=== PATIENT | female | born 1990 | race Caucasian/White ===

== ENCOUNTER 2016-04-18 10:37 | Emergency (ER) | payer OTHER ==
[~2016-04-18 10:37] MED LIST: ACET-704 PO; DICY10CA3 PO; DOCU-27 PO; HYDR-2678 PO; HYDR-2762 PO; Ibuprofen PO; LORA0.5T96 PO; OMEP20TA PO; OXYC-323 PO; PNV1TABL25 PO; PROM25TA10 PO; SULF1TAB24 PO; SULF1TAB3 PO; VENTOLIN HFA18 GM IH
[2016-04-18] MEDS ORDERED: ONDANSETRON PF 4 MG/2 ML VIAL. IV ONE (11:00)
[2016-04-18] MEDS ORDERED: IV NORMAL SALINE 1000ML BAG 1,000 ML IV ONE (11:00)
[2016-04-18] MEDS ORDERED: CEFTRIAXONE 1GM IVPB FOR OMNI 50 ML IV ONE (11:00)
[2016-04-18 11:29] LABS: BASO % 1 % (0-3); EOS % 2 % (0-3); HEMATOCRIT 39.3 % (36.0-47.0); HEMOGLOBIN 13.3 g/dL (12.0-15.5); LYMPH # 1.6 x10^3/uL (1.0-4.8); LYMPH % 31 % (24-48); MEAN CORPUSCULAR HEMOGLOBIN 28 pg (25-35); MEAN CORPUSCULAR HGB CONC 34 g/dL (31-37); MEAN CORPUSCULAR VOLUME 83 fL (79-100); MONO % 9 % (0-9); NEUT % 58 % (31-73); PLATELET COUNT 220 x10^3/uL (140-400); RED BLOOD COUNT 4.72 x10^6/uL (3.50-5.40); RED CELL DISTRIBUTION WIDTH 13.5 % (11.5-14.5); WHITE BLOOD COUNT 5.2 x10^3/uL (4.0-11.0)
[2016-04-18 11:41] LABS: CREATININE 0.7 mg/dL (0.6-1.0); GFR 100.4; POTASSIUM 3.8 mmol/L (3.5-5.1)
[2016-04-18 11:48] LABS: ALBUMIN 4.1 g/dL (3.4-5.0); ALBUMIN/GLOBULIN RATIO 1.2 (1.0-1.7); TOTAL BILIRUBIN 0.5 mg/dL (0.2-1.0); TOTAL PROTEIN 7.6 g/dL (6.4-8.2)
[2016-04-18 12:22] LABS: NEG OBC UR NEG; POS OBC UR POS
[2016-04-18 12:25] LABS: BILIRUBIN,URINE NEGATIVE (NEG); GLUCOSE,URINE NEGATIVE (NEG); NITRITE,URINE NEGATIVE (NEG); PROTEIN,URINE NEGATIVE (NEG-TRACE); UROBILINOGEN,URINE 0.2 mg/dL (0.2 mg/dL)
[2016-04-18 12:42] LABS: BACTERIA,URINE MODERATE /HPF (0-FEW); SQUAMOUS EPITHELIAL CELL,UR MANY /LPF
[2016-04-18 13:17] VITALS: BP 130/72
[2016-04-18] MEDS ORDERED: SULF1TAB24 PO (13:20)
[2016-04-18] MEDS ORDERED: DICY20TA3 PO (13:20)
[2016-04-18] MEDS ORDERED: ONDA4TAB10 SL (13:20)
--- NOTE | 2016-04-18 13:20 | PHYS DOC ---
Past Medical History Past Medical History: Asthma Past Surgical History: Cholecystectomy Alcohol Use: None Drug Use: None Adult General Chief Complaint Chief Complaint: BACK PAIN - NO INJURY HPI HPI Patient is a 25 year old female with history of asthma who presents the multiple complaints. Patient states she's had moderate right flank pain, nausea vomiting and diarrhea for the last 24 days. Patient is also complaining of lower abdominal complaining of chest pressure when she lays down. Patient denies any hematemesis or melena. She believes her symptoms are streaming from taking Macrobid which she was put on a couple days ago for UTI. She feels her UTI symptoms of good 10 worse. She believes her infection is contracted kidneys. She is requested to also have an EKG and troponin to make sure her heart is okay. Off not patient was in the ED on April 07 for chest pain and was worked up and had negative results, she was also in the ED on April 06 for back pain and was worked up as well. She was also in the ED on February 2016. She states the medication she is no/ Macrobid made her symptoms worse and would like to be put on something else. Review of Systems Review of Systems Constitutional: Denies fever or chills [] Eyes: Denies change in visual acuity, redness, or eye pain [] HENT: Denies nasal congestion or sore throat [] Respiratory: Denies cough or shortness of breath [] Cardiovascular: chest pressure GI: abdominal pain, nausea, vomiting, and diarrhea [] : right flank pain Musculoskeletal: Denies back pain or joint pain [] Integument: Denies rash or skin lesions [] Neurologic: Denies headache, focal weakness or sensory changes [] Endocrine: Denies polyuria or polydipsia [] pysch:anxiety Current Medications Current Medications Current Medications Medications (Trade) Dose Ordered Sig/Andressa Start Time Stop Time Status Last Admin Dose Admin Ceftriaxone Sodium (Rocephin 1gm Ivpb For Omni) 50 ml @ 100 mls/hr 1X ONCE 04/18/16 11:00 04/18/16 11:29 DC 04/18/16 11:24 100 MLS/HR Ondansetron HCl 4 mg 4 mg 1X ONCE 04/18/16 11:00 04/18/16 11:01 DC 04/18/16 11:24 4 MG Sodium Chloride (Iv Sodium Chloride 0.9% 1000ml Bag) 1,000 ml @ 1,000 mls/hr 1X ONCE 04/18/16 11:00 04/18/16 11:59 DC 04/18/16 11:24 1,000 MLS/HR Trimethoprim/ Sulfamethoxazole (Bactrim Ds) 1 tab 1X ONCE 04/18/16 13:45 04/18/16 13:46 DC 04/18/16 13:17 1 TAB Allergies Allergies Allergies Coded Allergies Type Severity Reaction Last Updated Verified codeine Allergy Mild abdominal pain 04/18/16 Yes ibuprofen Adverse Reaction Mild NAUSEA 04/06/16 Yes Physical Exam Physical Exam Constitutional: Well developed, well nourished, no acute distress, non-toxic appearance. [] HENT: Normocephalic, atraumatic, bilateral external ears normal, oropharynx moist, no oral exudates, nose normal. [] Eyes: PERRLA, EOMI, conjunctiva normal, no discharge. [] Neck: Normal range of motion, no tenderness, supple, no stridor. [] Cardiovascular:Heart rate regular rhythm, no murmur [] Lungs & Thorax: Bilateral breath sounds clear to auscultation [] Abdomen: Bowel sounds normal, soft, no tenderness, no masses, no pulsatile masses. [] Skin: Warm, dry, no erythema, no rash. [] Back: No tenderness, no CVA tenderness. [] Extremities: No tenderness, no cyanosis, no clubbing, ROM intact, no edema. [] Neurologic: Alert and oriented X 3, normal motor function, normal sensory function, no focal deficits noted. [] Psychologic: Patient appears anxious Current Patient Data Vital Signs Vital Signs Date Time Temp Pulse Resp B/P Pulse Ox O2 Delivery O2 Flow Rate FiO2 04/18/16 13:17 85 17 130/72 100 Room Air 04/18/16 10:51 98.3 98.3 Lab Values Laboratory Tests Test 04/18/16 11:15 04/18/16 11:42 White Blood Count 5.2x10^3/uL (4.0-11.0) Red Blood Count 4.72x10^6/uL (3.50-5.40) Hemoglobin 13.3g/dL (12.0-15.5) Hematocrit 39.3% (36.0-47.0) Mean Corpuscular Volume 83fL (79-100) Mean Corpuscular Hemoglobin 28pg (25-35) Mean Corpuscular Hemoglobin Concent 34g/dL (31-37) Red Cell Distribution Width 13.5% (11.5-14.5) Platelet Count 220x10^3/uL (140-400) Neutrophils (%) (Auto) 58% (31-73) Lymphocytes (%) (Auto) 31% (24-48) Monocytes (%) (Auto) 9% (0-9) Eosinophils (%) (Auto) 2% (0-3) Basophils (%) (Auto) 1% (0-3) Neutrophils # (Auto) 3.0x10^3uL (1.8-7.7) Lymphocytes # (Auto) 1.6x10^3/uL (1.0-4.8) Monocytes # (Auto) 0.5x10^3/uL (0.0-1.1) Eosinophils # (Auto) 0.1x10^3/uL (0.0-0.7) Basophils # (Auto) 0.0x10^3/uL (0.0-0.2) Sodium Level 141mmol/L (136-145) Potassium Level 3.8mmol/L (3.5-5.1) Chloride Level 105mmol/L (98-107) Carbon Dioxide Level 23mmol/L (21-32) Anion Gap 13 (6-14) Blood Urea Nitrogen 6mg/dL (7-20) L Creatinine 0.7mg/dL (0.6-1.0) Estimated GFR (Cockcroft-Gault) 100.4 BUN/Creatinine Ratio 9 (6-20) Glucose Level 101mg/dL (70-99) H Calcium Level 9.0mg/dL (8.5-10.1) Total Bilirubin 0.5mg/dL (0.2-1.0) Aspartate Amino Transferase (AST) 14U/L (15-37) L Alanine Aminotransferase (ALT) 28U/L (14-59) Alkaline Phosphatase 78U/L (46-116) Troponin I Quantitative < 0.017ng/mL (0.000-0.055) Total Protein 7.6g/dL (6.4-8.2) Albumin 4.1g/dL (3.4-5.0) Albumin/Globulin Ratio 1.2 (1.0-1.7) Lipase 93U/L (73-393) Urine Collection Type Unknown Urine Color Yellow Urine Clarity Clear Urine pH 6.0 Urine Specific [place] 1.010 Urine Protein Negativemg/dL (NEG-TRACE) Urine Glucose (UA) Negativemg/dL (NEG) Urine Ketones (Stick) 15mg/dL (NEG) Urine Blood Negative (NEG) Urine Nitrite Negative (NEG) Urine Bilirubin Negative (NEG) Urine Urobilinogen Dipstick 0.2mg/dL (0.2 mg/dL) Urine Leukocyte Esterase Moderate (NEG) Urine RBC 3-5/HPF (0-2) Urine WBC 5-10/HPF (0-4) Urine Squamous Epithelial Cells Many/LPF Urine Bacteria Moderate/HPF (0-FEW) Urine Mucus Mod/LPF Urine Test Negative (NEG) Laboratory Tests 04/18/16 11:15 Laboratory Tests 04/18/16 11:15 EKG EKG [] Radiology/Procedures Radiology/Procedures [] Course & Med Decision Making Course & Med Decision Making Pertinent Labs and Imaging studies reviewed. (See chart for details) Patient is in the ED with multiple complaints including right flank pain, nausea vomiting and diarrhea for 24 hours, no abdominal pain, chest pressure, patient was seen in the ED of March 08, 2016 and was worked up for chest pain with negative results, she was also seen in the ED on April 06, 2016 for back pain and was also worked up, she was also seen in the ED of February 2016 for upper respiratory infection. On today's exam this patient appears anxious. She states she has history of anxiety and has an appointment with her counselor tomorrow as well as her PCP next week. She states she used to be on Xanax when necessary for anxiety but she no longer takes it. 11:[address] Martinez sinus rate them, heart rate 76, leftward axis, no STEMI. CBC CMP, troponin and lipase with no acute findings. Negative urine hCG, urine positive for moderate amount of leukocytes, many squamous cell epithelium, and moderate bacteria, I suspect this urine is contaminated. Unfortunately patient is very insistent, she states she would like to be switched from her current antibiotic tried different one. I gave Rocephin in the ED, given a prescription for Bactrim for 3 days. First does was also given in the ED. She was discharged with Zofran as well as a dicyclomine I talked to patient at length. Her anxiety is driving most of her symptoms. She has an appointment with her counselor tomorrow which she promised me she will. She also has an appointment with her PCP next week. I hope they put patient on antianxiety which I highly recommended. Dragon Disclaimer Dragon Disclaimer This electronic medical record was generated, in whole or in part, using a voice recognition dictation system. Departure Departure Impression: Primary Impression: Chest pain Additional Impressions: UTI (urinary tract infection) Anxiety Right flank pain Nausea and vomiting Diarrhea Disposition: HOME, SELF-CARE Condition: STABLE Referrals: FREYA JOHNSTON MD (PCP) Follow-up with your doctor as soon as possible Patient Instructions: Abdominal Pain, Anxiety and Panic Attacks, Chest Pain ( Nonspecific), Diarrhea, Nausea and Vomiting, Urinary Tract Infection Additional Instructions: You were seen for multiple complaints including nausea vomiting diarrhea flank pain low abdominal pain chest pressure. Your cardiac workup is negative. Your other lab work is okay. We did switched you from your current antibiotics to Bactrim, ensure you complete it. As we discussed her highly recommend you see your counselor tomorrow. I also recommended you see your own primary care doctor as soon as possible. Scripts Dicyclomine Hcl 20 Mg Tablet1 Tab PO TID #30 TAB Ref 1 Prov:JOHN BANSAL LOGISTICS SUPERVISOR 04/18/16 Ondansetron (Zofran Odt)4 Mg Tab.rapdis1 Tab SL Q8HRS #15 TAB Prov:JOHN BANSAL LOGISTICS SUPERVISOR 04/18/16 Sulfamethoxazole/Trimethoprim (Bactrim Ds Tablet)1 Each Tablet1 Tab PO BID #5 TAB Prov:JOHN BANSAL LOGISTICS SUPERVISOR 04/18/16 Problem Qualifiers Primary Impression: Chest pain Chest pain type: unspecified Qualified Code: R07.9 - Chest pain, unspecified Additional Impressions: UTI (urinary tract infection) Urinary tract infection type: acute cystitis Hematuria presence: without hematuria Qualified Code: N30.00 - Acute cystitis without hematuria Nausea and vomiting Vomiting type: unspecified Vomiting Intractability: non-intractable Qualified Code: R11.2 - Nausea with vomiting, unspecified Diarrhea Diarrhea type: unspecified type Qualified Code: R19.7 - Diarrhea, unspecified MUTUNGA,JOHN LOGISTICS SUPERVISOR Apr 18, 2016 13:20
[2016-04-18] MEDS ORDERED: SMZ/TMP 800/160MG TABLET. PO ONE (13:45)
--- NOTE | 2016-04-19 13:33 | EKG ---
[facility] [address] [place] [address] Test Date: 2016-04-18 Test Time: 11:27:30 Pat Name: TYSHAWN LOPEZ Department: Room: Gender: F [employer] Teacher: : 1990 Requested By: JOHN BANSAL Order Number: [id number] Reading MD: Stella Warner Measurements Intervals [place] Rate: 76 P: 30 DE: 124 QRS: 13 QRSD: 88 T: 20 QT: 372 QTc: 423 Interpretive Statements SINUS RHYTHM NORMAL ECG RI6.01 Compared to ECG 03/30/2016 15:27:21 Sinus tachycardia no longer present Electronically Signed On 04-23-2016 21:40:46 RISK CONSULTING TREASURY DIRECTOR by Stella Warner
== END 2016-04-18 13:40 | disposition home or self-care (01) ==
LOC: ER 10:37
DX: N39.0 Urinary tract infection, site not specified (principal); R07.89 Other chest pain; R11.2 Nausea with vomiting, unspecified; R19.7 Diarrhea, unspecified; F41.9 Anxiety disorder, unspecified; J45.909 Unspecified asthma, uncomplicated; Z90.49 Acquired absence of other specified parts of digestive tract; Z88.6 Allergy status to analgesic agent; Z88.8 Allergy status to other drugs, medicaments and biological substances
CPT/HCPCS: 36415; 80053; 81001; 81025; 83690; 84484; 85027; 87086; 93005; 96365; 96375; 99285; J0690; J2405; J7030

== ENCOUNTER 2016-05-02 15:29 | Emergency (ER) | payer OTHER ==
[~2016-05-02 15:29] MED LIST changes: +DICY20TA3 PO; +ONDA4TAB10 SL
--- NOTE | 2016-05-02 18:35 | PHYS DOC ---
Past Medical History Past Medical History: Anxiety, Asthma Past Surgical History: Cholecystectomy Alcohol Use: None Drug Use: None Adult General Chief Complaint Chief Complaint: NAUSEA/VOMITING/DIARRHA HPI HPI Patient is a 25 year old female who presents with multiple complaints. Patient reports for the past couple weeks she has had body aches in her chest, back, legs, nausea/vomiting, feeling flushed, cough. Last night she took some anxiety medicine feels like her symptoms got worse. She has also tried medicine for acid reflux, acetaminophen, Zofran, Pepto-Bismol with insufficient relief. No clear aggravating factors other than anxiety medicine. Patient has an appointment with PCP on 05/05 but felt like she could not make it until then without being seen. Review of Systems Review of Systems Constitutional: Chills, flushed Eyes: Denies change in visual acuity or eye pain HENT: Denies nasal congestion or sore throat Respiratory: Cough. Denies shortness of breath Cardiovascular: Denies chest pain GI: Nausea/vomiting. Denies abdominal pain, bloody stools or diarrhea : Denies dysuria or hematuria Musculoskeletal: Body aches Integument: Denies rash or skin lesions Neurologic: Denies headache, focal weakness or sensory changes Current Medications Current Medications Current Medications Medications (Trade) Dose Ordered Sig/Andressa Start Time Stop Time Status Last Admin Dose Admin Naproxen 500 mg 500 mg 1X ONCE 05/02/16 18:45 05/02/16 18:46 DC 05/02/16 19:41 500 MG Promethazine HCl/ Sodium Chloride (Phenergan/Iv Sodium Chloride 0.9% 50ml) 50.5 ml @ 151.5 mls/ hr 1X ONCE 05/02/16 18:45 05/02/16 19:04 DC 05/02/16 19:42 151.5 MLS/HR Sodium Chloride (Iv Sodium Chloride 0.9% 1000ml Bag) 1,000 ml @ 1,000 mls/hr Q1H 05/02/16 18:36 05/02/16 19:35 DC 05/02/16 19:42 1,000 MLS/HR Allergies Allergies Allergies Coded Allergies Type Severity Reaction Last Updated Verified codeine Allergy Mild abdominal pain 04/18/16 Yes ibuprofen Adverse Reaction Mild NAUSEA 04/06/16 Yes Physical Exam Physical Exam Constitutional: Well developed, well nourished, no acute distress, non-toxic appearance HENT: Normocephalic, atraumatic, bilateral external ears normal Eyes: EOMI, conjunctiva normal, no discharge Neck: Normal range of motion, no stridor Cardiovascular: Heart rate normal, regular rhythm, no murmur Lungs & Thorax: Bilateral breath sounds clear to auscultation Abdomen: Bowel sounds normal, soft, non-distended, no TTP Skin: Warm, dry, no erythema, no rash Extremities: Seemingly random TTP around body - ie on chest, back, legs Neurologic: Alert and oriented X 3, no gross deficits noted Psychologic: Anxious Current Patient Data Vital Signs Vital Signs Date Time Temp Pulse Resp B/P Pulse Ox O2 Delivery O2 Flow Rate FiO2 05/02/16 20:50 78 122/68 99 Room Air 05/02/16 17:40 98.5 18 98.5 Lab Values Laboratory Tests Test 05/02/16 19:30 05/02/16 19:35 White Blood Count 7.0x10^3/uL (4.0-11.0) Red Blood Count 5.14x10^6/uL (3.50-5.40) Hemoglobin 14.5g/dL (12.0-15.5) Hematocrit 43.6% (36.0-47.0) Mean Corpuscular Volume 85fL (79-100) Mean Corpuscular Hemoglobin 28pg (25-35) Mean Corpuscular Hemoglobin Concent 33g/dL (31-37) Red Cell Distribution Width 13.9% (11.5-14.5) Platelet Count 262x10^3/uL (140-400) Neutrophils (%) (Auto) 48% (31-73) Lymphocytes (%) (Auto) 41% (24-48) Monocytes (%) (Auto) 9% (0-9) Eosinophils (%) (Auto) 1% (0-3) Basophils (%) (Auto) 1% (0-3) Neutrophils # (Auto) 3.3x10^3uL (1.8-7.7) Lymphocytes # (Auto) 2.9x10^3/uL (1.0-4.8) Monocytes # (Auto) 0.6x10^3/uL (0.0-1.1) Eosinophils # (Auto) 0.1x10^3/uL (0.0-0.7) Basophils # (Auto) 0.1x10^3/uL (0.0-0.2) Sodium Level 138mmol/L (136-145) Potassium Level 3.6mmol/L (3.5-5.1) Chloride Level 100mmol/L (98-107) Carbon Dioxide Level 24mmol/L (21-32) Anion Gap 14 (6-14) Blood Urea Nitrogen 6mg/dL (7-20) L Creatinine 0.7mg/dL (0.6-1.0) Estimated GFR (Cockcroft-Gault) 100.4 Glucose Level 83mg/dL (70-99) Calcium Level 9.7mg/dL (8.5-10.1) Magnesium Level 2.2mg/dL (1.8-2.4) Total Bilirubin 0.5mg/dL (0.2-1.0) Direct Bilirubin < 0.1mg/dL (0.0-0.2) Aspartate Amino Transferase (AST) 15U/L (15-37) Alanine Aminotransferase (ALT) 25U/L (14-59) Alkaline Phosphatase 75U/L (46-116) Total Protein 8.3g/dL (6.4-8.2) H Albumin 4.5g/dL (3.4-5.0) Urine Collection Type Unknown Urine Color Yellow Urine Clarity Clear Urine pH 6.0 Urine Specific [place] <=1.005 Urine Protein Negativemg/dL (NEG-TRACE) Urine Glucose (UA) Negativemg/dL (NEG) Urine Ketones (Stick) Tracemg/dL (NEG) Urine Blood Negative (NEG) Urine Nitrite Negative (NEG) Urine Bilirubin Negative (NEG) Urine Urobilinogen Dipstick 0.2mg/dL (0.2 mg/dL) Urine Leukocyte Esterase Small (NEG) Urine RBC 0/HPF (0-2) Urine WBC 5-10/HPF (0-4) Urine Squamous Epithelial Cells Mod/LPF Urine Bacteria Moderate/HPF (0-FEW) Urine Test Negative (NEG) Laboratory Tests 05/02/16 19:30 Laboratory Tests 05/02/16 19:30 EKG EKG EKG (my read): sinus rhythm, rate 79, normal axis, intervals wnl, no acute ischemic changes Radiology/Procedures Radiology/Procedures CXR (my read): No acute abnormality Course & Med Decision Making Course & Med Decision Making Pertinent Labs and Imaging studies reviewed. (See chart for details) Patient is 25-year-old female who presents with multiple complaints. Appears to have some component of anxiety. Perhaps has fibromyalgia. Will check EKG, chest x-ray, labs to evaluate for more serious pathology. IV fluids, naproxen, Phenergan ordered for relief of symptoms. Chest x-ray results as above. EKG okay per my read. Labs largely unremarkable. Discussed results with patient. Discussed importance of following up with PCP and also a in file operator, with whom she is awaiting an appointment. We'll discharge home with prescription for naproxen and Phenergan, instructions for follow-up, return precautions. Dragon Disclaimer Dragon Disclaimer This electronic medical record was generated, in whole or in part, using a voice recognition dictation system. Departure Departure Impression: Primary Impression: Myalgia Additional Impressions: Atypical chest pain Nausea Disposition: HOME, SELF-CARE Condition: STABLE Referrals: FREYA JOHNSTON MD (PCP) Patient Instructions: Chest Pain (Nonspecific), Myalgia, Adult, Nausea and Vomiting Additional Instructions: Thank you for allowing us to provide care today in the Emergency Department. Take the provided medication as directed. Use caution when taking the nausea medication as it can make you drowsy. Schedule a follow up appointment with your primary care doctor. Return promptly to the Emergency Department if you develop any new or concerning symptoms. Scripts Naproxen 375 Mg [id number] Mg PO BID #20 Prov:JUDY ARRIOLA MD 05/02/16 Promethazine Hcl 25 Mg [id number] Mg PO Q6H PRN NAUSEA/VOMITING #15 TAB Prov:JUDY ARRIOLA MD 05/02/16 Problem Qualifiers JUDY ARRIOLA MD May 02, 2016 18:35
[2016-05-02] MEDS ORDERED: IV NORMAL SALINE 1000ML BAG 1,000 ML IV SCH (18:36)
[2016-05-02] MEDS ORDERED: NAPROXEN 500 MG TABLET PO ONE (18:45)
[2016-05-02] MEDS ORDERED: PROMETHAZINE 12.5 MG in IV NORMAL SALINE 50ML 50 ML IV ONE (18:45)
[2016-05-02 19:48] LABS: BASO # 0.1 x10^3/uL (0.0-0.2); BASO % 1 % (0-3); EOS % 1 % (0-3); HEMATOCRIT 43.6 % (36.0-47.0); HEMOGLOBIN 14.5 g/dL (12.0-15.5); LYMPH # 2.9 x10^3/uL (1.0-4.8); LYMPH % 41 % (24-48); MEAN CORPUSCULAR HEMOGLOBIN 28 pg (25-35); MEAN CORPUSCULAR HGB CONC 33 g/dL (31-37); MEAN CORPUSCULAR VOLUME 85 fL (79-100); MONO % 9 % (0-9); NEUT % 48 % (31-73); PLATELET COUNT 262 x10^3/uL (140-400); RED BLOOD COUNT 5.14 x10^6/uL (3.50-5.40); RED CELL DISTRIBUTION WIDTH 13.9 % (11.5-14.5)
[2016-05-02 19:50] LABS: NEG OBC UR NEG; POS OBC UR POS
[2016-05-02 19:53] LABS: BILIRUBIN,URINE NEGATIVE (NEG); GLUCOSE,URINE NEGATIVE (NEG); NITRITE,URINE NEGATIVE (NEG); PROTEIN,URINE NEGATIVE (NEG-TRACE); UROBILINOGEN,URINE 0.2 mg/dL (0.2 mg/dL)
[2016-05-02 20:07] LABS: ANION GAP 14 (6-14); BLOOD UREA NITROGEN 6 mg/dL (7-20); CALCIUM 9.7 mg/dL (8.5-10.1); CARBON DIOXIDE 24 mmol/L (21-32); CHLORIDE 100 mmol/L (98-107); CREATININE 0.7 mg/dL (0.6-1.0); GFR 100.4; GLUCOSE 83 mg/dL (70-99); POTASSIUM 3.6 mmol/L (3.5-5.1); SODIUM 138 mmol/L (136-145)
[2016-05-02 20:13] LABS: ALBUMIN 4.5 g/dL (3.4-5.0); ALK PHOS 75 U/L (46-116); ALT (SGPT) 25 U/L (14-59); AST (SGOT) 15 U/L (15-37); DIRECT BILIRUBIN < 0.1 mg/dL (0.0-0.2); MAGNESIUM 2.2 mg/dL (1.8-2.4); TOTAL BILIRUBIN 0.5 mg/dL (0.2-1.0); TOTAL PROTEIN 8.3 g/dL (6.4-8.2)
[2016-05-02 20:15] LABS: BACTERIA,URINE MODERATE /HPF (0-FEW); RBC,URINE 0 /HPF (0-2); SQUAMOUS EPITHELIAL CELL,UR MOD /LPF
[2016-05-02] MEDS ORDERED: NAPR375T3 PO (20:44)
[2016-05-02] MEDS ORDERED: PROM25TA10 PO (20:44)
[2016-05-02 20:50] VITALS: BP 122/68
--- NOTE | 2016-05-03 06:56 | EKG ---
[facility] [address] [place] [address] Test Date: 2016-05-02 Test Time: 19:43:50 Pat Name: TYSHAWN LOPEZ Department: Room: Gender: F Manufacturing Team Leader: : 1990 Requested By: JUDY ARRIOLA Order Number: [id number] Reading MD: Stella Warner Measurements Intervals [place] Rate: 79 P: 0 VA: 134 QRS: 23 QRSD: 88 T: 12 QT: 360 QTc: 414 Interpretive Statements SINUS RHYTHM NORMAL EKG RI6.01 Compared to ECG 04/18/2016 11:27:30 No significant changes Electronically Signed On 05-05-2016 0:23:46 TECHNICAL PROGRAMS MANAGER by Stella Warner
--- NOTE | 2016-05-03 09:20 | RAD ---
Chest, 2 views, 05/02/2016: History: Chest lump Comparison is made to a study from 04/07/2016. The heart size and pulmonary vascularity are normal. The lungs are clear. There is no evidence of pleural fluid. IMPRESSION: No significant cardiopulmonary abnormality is detected.
== END 2016-05-02 21:01 | disposition home or self-care (01) ==
LOC: ER 15:29
DX: R07.89 Other chest pain (principal); M79.1 Myalgia; R11.2 Nausea with vomiting, unspecified; R05 Cough; F41.9 Anxiety disorder, unspecified; J45.909 Unspecified asthma, uncomplicated; Z90.49 Acquired absence of other specified parts of digestive tract; Z88.5 Allergy status to narcotic agent; Z88.8 Allergy status to other drugs, medicaments and biological substances
CPT/HCPCS: 36415; 71020; 80048; 80076; 81001; 81025; 83735; 85027; 87086; 93005; 96365; 99285; J2550; J7030

== ENCOUNTER 2016-09-03 22:00 | Emergency (ER) | payer OTHER ==
[~2016-09-03] VITALS: Ht 167.6 cm; Wt 93.6 kg
[~2016-09-03 22:00] MED LIST changes: +NAPR375T3 PO
--- NOTE | 2016-09-03 22:24 | PHYS DOC ---
Past Medical History Past Medical History: Anxiety, Asthma Past Surgical History: Cholecystectomy Alcohol Use: None Drug Use: None Adult General Chief Complaint Chief Complaint: ABDOMINAL PAIN HPI HPI This is a pleasant 26-year-old female with history of asthma and prior cholelithiasis requiring cholecystectomy presents with one-week history of diffuse crampy abdominal pain as got progressively worse and localized to the right flank. She was seen by her primary care doctor described the symptoms of nausea without vomiting or diarrhea with progressive crampy abdominal pain with meals she was prescribed Tylenol and diagnosis of IBS. She does have a GI doctor Dr. Mesfin Ying who is supposed to see her and schedule an EGD later in the next several weeks. She comes in today with increasing abdominal pain in the right flank describing mild dysuria or increased frequency with localized pressure. She's got subjective fevers and chills without diarrhea. patient admits to no travel of the country, no recent antibiotics, no sick contacts, no recent raw food consumption, handling a poultry or reptiles, or exposure to infectious diarrheas. Review of Systems Review of Systems Constitutional: Complains of subjective fevers and chills. Eyes: Denies change in visual acuity, redness, or eye pain [] HENT: Denies nasal congestion or sore throat [] Respiratory: Denies cough or shortness of breath [] Cardiovascular: No additional information not addressed in HPI [] GI: As a diffuse abdominal pain with nausea without vomiting no diarrhea. : Planes of dysuria without frequency or urgency. Musculoskeletal: Denies back pain or joint pain [] Integument: Denies rash or skin lesions [] Neurologic: Denies headache, focal weakness or sensory changes [] Endocrine: Denies polyuria or polydipsia [] Current Medications Current Medications Current Medications Medications (Trade) Dose Ordered Sig/Andressa Start Time Stop Time Status Last Admin Dose Admin Fentanyl Citrate (Fentanyl 2ml Vial) 50 mcg 1X ONCE 09/03/16 22:30 09/03/16 22:31 DC 09/03/16 22:38 50 MCG Ondansetron HCl (Zofran) 4 mg 1X ONCE 09/03/16 22:30 09/03/16 22:31 DC 09/03/16 22:38 4 MG Sodium Chloride (Normal Saline Flush) 10 ml QSHIFT PRN 09/03/16 22:30 Allergies Allergies Allergies Coded Allergies Type Severity Reaction Last Updated Verified codeine Allergy Mild abdominal pain 04/18/16 Yes ibuprofen Adverse Reaction Mild NAUSEA 04/06/16 Yes Physical Exam Physical Exam mild HTN noted no fever, no hypoxia, no tachypnea Constitutional: Well developed, well nourished, no acute distress, non-toxic appearance. [] HENT: Normocephalic, atraumatic, bilateral external ears normal, oropharynx moist, Cardiovascular:Heart rate regular rhythm, no murmur [] Lungs & Thorax: Bilateral breath sounds clear to auscultation [] Abdomen: Bowel sounds normal, soft, tenderness to palpation right flank without rash. Increased active bowel sounds no guarding rebound or organomegaly Skin: Warm, dry, no erythema, no rash. [] Back: No tenderness, no CVA tenderness. [] Extremities: No tenderness, no cyanosis, no clubbing, ROM intact, no edema. [] Neurologic: Alert and oriented X 3, normal motor function, normal sensory function, no focal deficits noted. [] Psychologic: Affect normal, judgement normal, mood normal. [] Current Patient Data Vital Signs Vital Signs Date Time Temp Pulse Resp B/P (MAP) Pulse Ox O2 Delivery O2 Flow Rate FiO2 09/03/16 22:38 18 100 Room Air 09/03/16 22:24 99.3 84 146/88 (107) 99.3 Lab Values Laboratory Tests Test 09/03/16 21:27 09/03/16 22:09 09/03/16 22:20 POC Urine HCG, Qualitative Hcg negative (Negative) Urine Collection Type Unknown Urine Color Yellow Urine Clarity Clear Urine pH 6.5 Urine Specific [place] <=1.005 Urine Protein Negative mg/dL (NEG-TRACE) Urine Glucose (UA) Negative mg/dL (NEG) Urine Ketones (Stick) Negative mg/dL (NEG) Urine Blood Negative (NEG) Urine Nitrite Negative (NEG) Urine Bilirubin Negative (NEG) Urine Urobilinogen Dipstick 0.2 mg/dL (0.2 mg/dL) Urine Leukocyte Esterase Small (NEG) Urine RBC Occ /HPF (0-2) Urine WBC 11-20 /HPF (0-4) Urine Squamous Epithelial Cells Many /LPF Urine Bacteria Moderate /HPF (0-FEW) Urine Mucus Slight /LPF White Blood Count 6.7 x10^3/uL (4.0-11.0) Red Blood Count 4.79 x10^6/uL (3.50-5.40) Hemoglobin 13.7 g/dL (12.0-15.5) Hematocrit 40.9 % (36.0-47.0) Mean Corpuscular Volume 85 fL (79-100) Mean Corpuscular Hemoglobin 29 pg (25-35) Mean Corpuscular Hemoglobin Concent 34 g/dL (31-37) Red Cell Distribution Width 14.5 % (11.5-14.5) Platelet Count 276 x10^3/uL (140-400) Neutrophils (%) (Auto) 41 % (31-73) Lymphocytes (%) (Auto) 45 % (24-48) Monocytes (%) (Auto) 8 % (0-9) Eosinophils (%) (Auto) 5 % (0-3) H Basophils (%) (Auto) 1 % (0-3) Neutrophils # (Auto) 2.8 x10^3uL (1.8-7.7) Lymphocytes # (Auto) 3.0 x10^3/uL (1.0-4.8) Monocytes # (Auto) 0.5 x10^3/uL (0.0-1.1) Eosinophils # (Auto) 0.3 x10^3/uL (0.0-0.7) Basophils # (Auto) 0.1 x10^3/uL (0.0-0.2) Sodium Level 140 mmol/L (136-145) Potassium Level 3.4 mmol/L (3.5-5.1) L Chloride Level 103 mmol/L (98-107) Carbon Dioxide Level 27 mmol/L (21-32) Anion Gap 10 (6-14) Blood Urea Nitrogen 5 mg/dL (7-20) L Creatinine 0.7 mg/dL (0.6-1.0) Estimated GFR (Cockcroft-Gault) 99.6 BUN/Creatinine Ratio 7 (6-20) Glucose Level 104 mg/dL (70-99) H Calcium Level 9.4 mg/dL (8.5-10.1) Total Bilirubin 0.3 mg/dL (0.2-1.0) Aspartate Amino Transferase (AST) 14 U/L (15-37) L Alanine Aminotransferase (ALT) 24 U/L (14-59) Alkaline Phosphatase 99 U/L (46-116) Total Protein 8.4 g/dL (6.4-8.2) H Albumin 3.9 g/dL (3.4-5.0) Albumin/Globulin Ratio 0.9 (1.0-1.7) L Lipase 97 U/L (73-393) Laboratory Tests 09/03/16 22:20 Laboratory Tests 09/03/16 22:20 EKG EKG [] Radiology/Procedures Radiology/Procedures [] Course & Med Decision Making Course & Med Decision Making Pertinent Labs and Imaging studies reviewed. (See chart for details) patient with UTI symptoms and abdominal pain with subjective nausea without diarrhea. Urinalysis clearly has bacteria and white blood cells in it but occasional epithelia cells which is likely contaminated. The given reported symptoms I will treat her empirically as a UTI or subclinical pyelonephritis. Her white blood cell count is normal her kidney function is normal is not . At this time her abdominal pain is improved [] she will be given antiemetics as well as a fluoroquinolone for her UTI and follow-up with her primary care doctor. Impression: Abdominal pain, UTI, nausea. Disposition PCP follow-up in 24 hours return for any increasing pain, new symptoms questions or concerns fevers despite treatment. Cautions were given as this could be early appendicitis. Dragon Disclaimer Dragon Disclaimer This electronic medical record was generated, in whole or in part, using a voice recognition dictation system. Departure Departure Impression: Primary Impression: Abdominal pain Additional Impression: UTI (urinary tract infection) Disposition: HOME, SELF-CARE Condition: IMPROVED Referrals: FREYA JOHNSTON MD (PCP) Patient Instructions: Abdominal Pain, Nausea, Adult, Urinary Tract Infection Additional Instructions: Please return for any new or increasing symptoms, fever greater than 102.2 despite treatment, localized pain in the right lower quadrant as this could be early appendicitis that is not developed. Please return for any questions or concerns or if you've any inability to tolerate medications by mouth. I would also advise he follow up with her regular doctor continued evaluation of your chronic abdominal pain. Scripts Phenazopyridine Hcl (PYRIDIUM) 200 Mg Tablet 200 MG PO TID for 3 Days, #9 TAB Prov: SABINO FARIAS MD 09/03/16 Ciprofloxacin Hcl (CIPRO) 500 Mg Tablet 1 TAB PO BID, #20 TAB Prov: SABINO FARIAS MD 09/03/16 Ondansetron (ZOFRAN ODT) 4 Mg Tab.rapdis 4 MG PO BID Y for NAUSEA/VOMITING for 7 Days, #14 TAB Prov: SABINO FARIAS MD 09/03/16 Problem Qualifiers SABINO FARIAS MD September 03, 2016 22:24
[2016-09-03 22:28] LABS: BASO # 0.1 x10^3/uL (0.0-0.2); BASO % 1 % (0-3); EOS % 5 % (0-3); HEMATOCRIT 40.9 % (36.0-47.0); HEMOGLOBIN 13.7 g/dL (12.0-15.5); LYMPH % 45 % (24-48); MEAN CORPUSCULAR HEMOGLOBIN 29 pg (25-35); MEAN CORPUSCULAR HGB CONC 34 g/dL (31-37); MEAN CORPUSCULAR VOLUME 85 fL (79-100); MONO % 8 % (0-9); NEUT % 41 % (31-73); PLATELET COUNT 276 x10^3/uL (140-400); RED BLOOD COUNT 4.79 x10^6/uL (3.50-5.40); RED CELL DISTRIBUTION WIDTH 14.5 % (11.5-14.5); WHITE BLOOD COUNT 6.7 x10^3/uL (4.0-11.0)
[2016-09-03 22:29] LABS: BILIRUBIN,URINE NEGATIVE (NEG); GLUCOSE,URINE NEGATIVE (NEG); NITRITE,URINE NEGATIVE (NEG); PH,URINE 6.5; PROTEIN,URINE NEGATIVE (NEG-TRACE); UROBILINOGEN,URINE 0.2 mg/dL (0.2 mg/dL)
[2016-09-03] MEDS ORDERED: fentaNYL PF VIAL 100 MCG/2 ML VIAL IV ONE (22:30)
[2016-09-03] MEDS ORDERED: ONDANSETRON PF 4 MG/2 ML VIAL. IV ONE (22:30)
[2016-09-03] MEDS ORDERED: IV NORMAL SALINE 1000ML BAG 1,000 ML IV SCH (22:30)
[2016-09-03] MEDS ORDERED: 0.9 % SODIUM CHLORIDE 10 ML DISP.SYRIN. IV PRN (22:30)
[2016-09-03 22:41] LABS: CALCIUM 9.4 mg/dL (8.5-10.1); CREATININE 0.7 mg/dL (0.6-1.0); GFR 99.6; POTASSIUM 3.4 mmol/L (3.5-5.1)
[2016-09-03 22:41] LABS: BACTERIA,URINE MODERATE /HPF (0-FEW); RBC,URINE OCC /HPF (0-2)
[2016-09-03 22:42] LABS: SQUAMOUS EPITHELIAL CELL,UR MANY /LPF
[2016-09-03 22:49] LABS: ALBUMIN 3.9 g/dL (3.4-5.0); ALBUMIN/GLOBULIN RATIO 0.9 (1.0-1.7); TOTAL BILIRUBIN 0.3 mg/dL (0.2-1.0); TOTAL PROTEIN 8.4 g/dL (6.4-8.2)
--- NOTE | 2016-09-03 23:16 | RAD ---
PROCEDURE CT abdomen pelvis without contrast HISTORY Diffuse abdominal pain and right flank pain TECHNIQUE Noncontrast helical CT scanning of the abdomen and pelvis was performed. Without GI contrast, the sensitivity to detect GI tract pathology is decreased. Without IV contrast, the sensitivity to detect organ pathology is decreased. COMPARISON June 23, 2015 FINDINGS The liver is homogeneous in appearance on this noncontrast study and is normal in size. [The partially calcified partially cystic area in the upper spleen was seen previously and appears stable The pancreas is homogeneous appearance on this noncontrast study and is not enlarged. There has been prior cholecystectomy. No adrenal masses are seen. No renal stones or hydronephrosis or perinephric fluid collections are seen. No hydroureter is seen. No stones are evident within either ureter or within the lumen of the urinary bladder. The urinary bladder wall is smooth. No focal aneurysmal dilatation of the abdominal aorta is seen. No enlarged abdominal or pelvic lymphadenopathy is seen. No free intraperitoneal fluid or free intraperitoneal air is seen. No obstructive bowel pattern or inflammatory changes are seen. The lung bases are clear. No osteolytic process is seen. . The appendix is normal. IMPRESSION No acute CT abnormality of the abdomen or pelvis is seen on this non contrast study.][Specifically, no urinary tract calculi or hydronephrosis or hydroureter is seen. Electronically signed by: Manan Mathis MD (September 03, 2016 23:15:25)
[2016-09-03] MEDS ORDERED: ONDA4TAB10 PO (23:38)
[2016-09-03] MEDS ORDERED: CIPR500T94 PO (23:38)
[2016-09-03] MEDS ORDERED: PHEN-318 PO (23:38)
[2016-09-03 23:39] VITALS: BP 113/65
== END 2016-09-04 | disposition home or self-care (01) ==
LOC: ER 22:00
DX: N39.0 Urinary tract infection, site not specified (principal); F41.9 Anxiety disorder, unspecified; I10 Essential (primary) hypertension; Z88.5 Allergy status to narcotic agent; Z88.6 Allergy status to analgesic agent; Z90.49 Acquired absence of other specified parts of digestive tract
CPT/HCPCS: 36415; 74176; 80053; 81001; 81025; 83690; 85027; 87086; 96361; 96374; 96375; 99285; J2405; J3010; J7030

== ENCOUNTER → 2016-09-27 | Day surgery (SDC) | payer OTHER ==
[~2016-09-27] MED LIST changes: +ACET325T9 PO; +CIPR500T94 PO; +DOCU-109 PO; -DOCU-27 PO; +IV RINGERS,LACTATED 1000ML 1,000 ML IV SCH; -OMEP20TA PO; +OMEP20TA8 PO; +ONDA4TAB10 PO; +PHEN-318 PO; +PROPOFOL 20 ML IV ONE; +SULF-143 PO; -SULF1TAB3 PO
[2016-09-27 08:06] LABS: NEG OBC UR NEG; POS OBC UR POS
[2016-09-27 09:58] VITALS: BP 117/73
--- NOTE | 2016-09-28 15:05 | PATHOLOGY ---
PATHOLOGY REPORT * * * * * * * * FINAL DIAGNOSIS: A. Esophageal biopsy: - Esophagitis with eosinophils. See comment. B. Gastric biopsy, antrum: - Congestion. COMMENT: A. Sections of the distal esophageal biopsy reveal multiple segments of tangentially-oriented, hyperplastic squamous esophageal mucosa. There are focally increased intraepithelial eosinophils. The differential diagnosis of esophagitis with eosinophils includes reflux esophagitis, "pill esophagitis", and eosinophilic esophagitis. Focally, there are 20-30 intraepithelial eosinophils per high power field. This latter finding is suggestive of eosinophilic esophagitis. B. Sections of the gastric biopsy reveal segments of gastric body mucosa showing superficial congestion and no significant inflammation. An immunoperoxidase stain for Helicobacter is obtained. No Helicobacter organisms are identified. There is no evidence of malignancy. (JPM:libra; d/t: 09/28/2016) REPORT ELECTRONICALLY SIGNED BY: Osorio Marrero M.D. DATE/TIME: 09/28/2016 15:04 * * * * * * * * GROSS PATHOLOGY: A. Received in formalin labeled "Mildred Lopez, distal esophageal biopsies," are 4 segments of li soft tissue measuring from 0.1 up to 0.3 cm in maximum dimension. The specimen is submitted entirely in cassette A1. B. Received in formalin labeled "antrum," are 3 segments of li soft tissue measuring from 0.1 up to 0.5 cm in maximum dimension. The specimen is submitted entirely in cassette B1. ([facility]; 09/27/16) INITIAL CPT CODE(S): A; 87666 B; 48586, 81494 Professional services performed by [facility] at [address] [address] Technical services performed by [facility] at [address] [place] [address], [facility] [address] [address]. SPECIMEN(S) RECEIVED: A.Distal esophagus biopsies B.Antrum biopsies CLINICAL HISTORY: Abdominal pain, r/o H. Pylori PATIENT: MILDRED LOPEZ R /AGE: 3 1990 (Age: 26) PATIENT #: [id number] ALT CASE #: SPECIMEN COLLECTION DATE: 09/27/2016 SPECIMEN RECEIVED DATE: 09/27/2016 [facility] - [address] [place] [address] - PHONE: [phone] * * * END OF REPORT * * *
== END | disposition home or self-care (01) ==
LOC: ENDOS 07:08
PROVIDERS: ATTEND Internal Medicine Gastroenterology
DX: K21.0 Gastro-esophageal reflux disease with esophagitis (principal); K29.50 Unspecified chronic gastritis without bleeding; F41.9 Anxiety disorder, unspecified; J45.909 Unspecified asthma, uncomplicated; Z83.3 Family history of diabetes mellitus; Z90.49 Acquired absence of other specified parts of digestive tract; Z88.6 Allergy status to analgesic agent; Z88.2 Allergy status to sulfonamides; Z88.8 Allergy status to other drugs, medicaments and biological substances; Z87.440 Personal history of urinary (tract) infections
CPT/HCPCS: 43239; 81025; 88305; 88342; J2704

== ENCOUNTER 2016-11-12 09:19 | Emergency (ER) | payer OTHER ==
[~2016-11-12] VITALS: Ht 167.6 cm; Wt 94.3 kg
[~2016-11-12 09:19] MED LIST changes: -IV RINGERS,LACTATED 1000ML 1,000 ML IV SCH; -PROPOFOL 20 ML IV ONE
[2016-11-12 09:42] LABS: BILIRUBIN,URINE NEGATIVE (NEG); GLUCOSE,URINE NEGATIVE (NEG); NITRITE,URINE NEGATIVE (NEG); PROTEIN,URINE NEGATIVE (NEG-TRACE); UROBILINOGEN,URINE 0.2 mg/dL (0.2 mg/dL)
[2016-11-12 09:55] LABS: BACTERIA,URINE FEW /HPF (0-FEW); RBC,URINE 0 /HPF (0-2); SQUAMOUS EPITHELIAL CELL,UR MOD /LPF
[2016-11-12] MEDS ORDERED: IV NORMAL SALINE 1000ML BAG 1,000 ML IV SCH (10:09)
[2016-11-12] MEDS ORDERED: DICYCLOMINE 20 MG/2 ML AMPUL. IM ONE (10:15)
[2016-11-12 10:18] LABS: BASO # 0.1 x10^3/uL (0.0-0.2); BASO % 1 % (0-3); EOS % 7 % (0-3); HEMATOCRIT 42.2 % (36.0-47.0); HEMOGLOBIN 14.2 g/dL (12.0-15.5); LYMPH # 2.1 x10^3/uL (1.0-4.8); LYMPH % 35 % (24-48); MEAN CORPUSCULAR HEMOGLOBIN 29 pg (25-35); MEAN CORPUSCULAR HGB CONC 34 g/dL (31-37); MEAN CORPUSCULAR VOLUME 85 fL (79-100); MONO % 6 % (0-9); NEUT % 52 % (31-73); PLATELET COUNT 237 x10^3/uL (140-400); RED BLOOD COUNT 4.96 x10^6/uL (3.50-5.40); RED CELL DISTRIBUTION WIDTH 14.3 % (11.5-14.5); WHITE BLOOD COUNT 6.2 x10^3/uL (4.0-11.0)
[2016-11-12 10:28] LABS: CALCIUM 9.2 mg/dL (8.5-10.1); CREATININE 0.7 mg/dL (0.6-1.0); GFR 99.6; POTASSIUM 3.6 mmol/L (3.5-5.1)
[2016-11-12 10:34] LABS: ALBUMIN 3.9 g/dL (3.4-5.0); ALBUMIN/GLOBULIN RATIO 0.9 (1.0-1.7); TOTAL BILIRUBIN 0.4 mg/dL (0.2-1.0); TOTAL PROTEIN 8.1 g/dL (6.4-8.2)
[2016-11-12 11:30] VITALS: BP 111/68
[2016-11-12] MEDS ORDERED: DICY10CA53 PO (11:42)
--- NOTE | 2016-11-12 11:43 | PHYS DOC ---
Past Medical History Past Medical History: Anxiety, Asthma, UTI, Other Additional Past Medical Histor: frequent UTIs Past Surgical History: Cholecystectomy Alcohol Use: None Drug Use: None Adult General Chief Complaint Chief Complaint: FLANK PAIN HPI HPI Patient is a 26 year old female who comes to the ED with the complaint of crampy abdominal pain across her lower abdomen and back with diarrhea and passing gas for about a week. The diarrhea is dark brown in color. She's had some nausea but no vomiting. She's felt tired. She's had some of this discomfort for more than a week. She did have a cholecystectomy and has mentioned this to her GI doctor who gave her some medication, sounds like cholestyramine, which she tried and did not help. Patient has been treated a couple of times lately for a presumed UTI, but both times the culture did not come back showing a UTI. She's had some urinary frequency and urgency but no dysuria. She's had some chills but no fever. She has not tried [id number] GI medications and has taken Tylenol with some relief. Patient recently had upper endoscopy by Dr. Lozano but was seeing him for something else. Review of Systems Review of Systems Constitutional: Denies fever or chills [] Eyes: Denies change in visual acuity, redness, or eye pain [] HENT: Denies nasal congestion or sore throat [] Respiratory: Denies cough or shortness of breath [] Cardiovascular: Denies chest pain GI: As in history of present illness : As in history of present illness Musculoskeletal: Denies back pain or joint pain [] Integument: Denies rash or skin lesions [] Neurologic: Denies headache, focal weakness or sensory changes [] Current Medications Current Medications Current Medications Medications (Trade) Dose Ordered Sig/Andressa Start Time Stop Time Status Last Admin Dose Admin Dicyclomine HCl (Bentyl) 10 mg 1X ONCE 11/12/16 10:15 11/12/16 10:16 DC 11/12/16 10:23 10 MG Sodium Chloride 1,000 ml @ 1,000 mls/hr Q1H 11/12/16 10:09 11/12/16 11:08 DC 11/12/16 10:23 1,000 MLS/HR Allergies Allergies Allergies Coded Allergies Type Severity Reaction Last Updated Verified Sulfa (Sulfonamide Antibiotics) Allergy Intermediate Rash 09/27/16 Yes ciprofloxacin Allergy Intermediate Rash, JOINT PAIN 09/27/16 Yes codeine Allergy Mild abdominal pain 09/27/16 Yes bupropion Adverse Reaction Intermediate SUICIDDAL THOUGHTS 09/27/16 Yes hydrocodone Adverse Reaction Intermediate ABDOMINAL PAIN 09/27/16 Yes paroxetine Adverse Reaction Intermediate PSYCHOSIS 09/27/16 Yes ibuprofen Adverse Reaction Mild NAUSEA 09/27/16 Yes Physical Exam Physical Exam Constitutional: Well developed, well nourished, no acute distress, non-toxic appearance. Alert, mentating Normally, stable vital signs. HENT: Normocephalic, atraumatic, bilateral external ears normal, nose normal. [ ] Eyes: conjunctiva normal, no discharge. [] Neck: Normal range of motion, no stridor. [] Cardiovascular:Heart rate regular rhythm, no murmur [] Lungs & Thorax: Bilateral breath sounds clear to auscultation [] Abdomen: Bowel sounds normal, soft, no masses, no pulsatile masses. Mild tenderness across lower abd, nonlocalized. Skin: Warm, dry, no erythema, no rash. [] Back: No tenderness, no CVA tenderness. [] Extremities: No tenderness, no cyanosis, no clubbing, ROM intact, no edema. [] Neurologic: Alert and oriented X 3, normal motor function, normal sensory function, no focal deficits noted. [] Current Patient Data Vital Signs Vital Signs Date Time Temp Pulse Resp B/P (MAP) Pulse Ox O2 Delivery O2 Flow Rate FiO2 11/12/16 11:30 80 25 111/68 (82) 100 Room Air 11/12/16 09:20 98.3 98.3 Lab Values Laboratory Tests Test 11/12/16 08:34 11/12/16 09:22 11/12/16 09:38 POC Urine HCG, Qualitative Hcg negative (Negative) Urine Collection Type Unknown Urine Color Yellow Urine Clarity Clear Urine pH 7.0 Urine Specific [place] <=1.005 Urine Protein Negative mg/dL (NEG-TRACE) Urine Glucose (UA) Negative mg/dL (NEG) Urine Ketones (Stick) Negative mg/dL (NEG) Urine Blood Negative (NEG) Urine Nitrite Negative (NEG) Urine Bilirubin Negative (NEG) Urine Urobilinogen Dipstick 0.2 mg/dL (0.2 mg/dL) Urine Leukocyte Esterase Moderate (NEG) Urine RBC 0 /HPF (0-2) Urine WBC 5-10 /HPF (0-4) Urine Squamous Epithelial Cells Mod /LPF Urine Bacteria Few /HPF (0-FEW) White Blood Count 6.2 x10^3/uL (4.0-11.0) Red Blood Count 4.96 x10^6/uL (3.50-5.40) Hemoglobin 14.2 g/dL (12.0-15.5) Hematocrit 42.2 % (36.0-47.0) Mean Corpuscular Volume 85 fL (79-100) Mean Corpuscular Hemoglobin 29 pg (25-35) Mean Corpuscular Hemoglobin Concent 34 g/dL (31-37) Red Cell Distribution Width 14.3 % (11.5-14.5) Platelet Count 237 x10^3/uL (140-400) Neutrophils (%) (Auto) 52 % (31-73) Lymphocytes (%) (Auto) 35 % (24-48) Monocytes (%) (Auto) 6 % (0-9) Eosinophils (%) (Auto) 7 % (0-3) H Basophils (%) (Auto) 1 % (0-3) Neutrophils # (Auto) 3.2 x10^3uL (1.8-7.7) Lymphocytes # (Auto) 2.1 x10^3/uL (1.0-4.8) Monocytes # (Auto) 0.4 x10^3/uL (0.0-1.1) Eosinophils # (Auto) 0.4 x10^3/uL (0.0-0.7) Basophils # (Auto) 0.1 x10^3/uL (0.0-0.2) Sodium Level 138 mmol/L (136-145) Potassium Level 3.6 mmol/L (3.5-5.1) Chloride Level 102 mmol/L (98-107) Carbon Dioxide Level 27 mmol/L (21-32) Anion Gap 9 (6-14) Blood Urea Nitrogen 6 mg/dL (7-20) L Creatinine 0.7 mg/dL (0.6-1.0) Estimated GFR (Cockcroft-Gault) 99.6 BUN/Creatinine Ratio 9 (6-20) Glucose Level 132 mg/dL (70-99) H Calcium Level 9.2 mg/dL (8.5-10.1) Total Bilirubin 0.4 mg/dL (0.2-1.0) Aspartate Amino Transferase (AST) 16 U/L (15-37) Alanine Aminotransferase (ALT) 24 U/L (14-59) Alkaline Phosphatase 93 U/L (46-116) Total Protein 8.1 g/dL (6.4-8.2) Albumin 3.9 g/dL (3.4-5.0) Albumin/Globulin Ratio 0.9 (1.0-1.7) L Laboratory Tests 11/12/16 09:38 Laboratory Tests 11/12/16 09:38 EKG EKG [] Radiology/Procedures Radiology/Procedures [] Course & Med Decision Making Course & Med Decision Making Pertinent Labs and Imaging studies reviewed. (See chart for details) 26-year-old female with what sounds like several weeks of diarrhea, crampy abdominal pain. I don't believe her symptoms are a UTI. She has had a couple of courses of antibiotics for a vertically positive urinalysis with what turned out to be negative cultures. Her symptoms do seem to be GI to me and seem to be related to diarrhea. Labs in the ER are unrevealing. The patient was given a dose of Bentyl with some improvement. Considerations in my mind include antibiotic associated diarrhea. It does not sound like C. difficile but may be disruption of normal colon Nadia. She does have a GI doctor and I urged her to follow up with him about this ongoing problem. We will try a short prescription for Bentyl and also encouraged her to use probiotics and yogurt with active cultures to see if that will make any improvements. See instructions for plan. [] Dragon Disclaimer Dragon Disclaimer This electronic medical record was generated, in whole or in part, using a voice recognition dictation system. Departure Departure Impression: Primary Impression: Abdominal pain Additional Impression: Diarrhea Disposition: 01 HOME, SELF-CARE Condition: IMPROVED Referrals: FREYA JOHNSTON MD (PCP) Patient Instructions: Diarrhea, [id number] Additional Instructions: Today, lab tests were normal. As we discussed, I recommend that you follow up with your GI doctor as soon as possible. As we discussed, we will try Bentyl for your pain. This may help with the cramping. Also, I recommend taking probiotics to see if this will help. #1, purchase over- the-counter probiotic pills at the pharmacy and take as directed on the package. #2, eat or drink yogurt with active cultures 3 times a day for about a week and see if that helps. Scripts Dicyclomine Hcl (BENTYL) 10 Mg Capsule 10 MG PO QID for CRAMPY ABDOMINAL PAIN, #30 TAB Prov: KALLIE MADRID MD 11/12/16 Problem Qualifiers KALLIE MADRID MD Nov 12, 2016 11:42
== END 2016-11-12 11:58 | disposition home or self-care (01) ==
LOC: ER 09:19
DX: R10.30 Lower abdominal pain, unspecified (principal); R19.7 Diarrhea, unspecified; R11.0 Nausea; R35.0 Frequency of micturition; J45.909 Unspecified asthma, uncomplicated; Z87.440 Personal history of urinary (tract) infections; Z90.49 Acquired absence of other specified parts of digestive tract; Z88.1 Allergy status to other antibiotic agents; Z88.2 Allergy status to sulfonamides; Z88.5 Allergy status to narcotic agent; Z88.6 Allergy status to analgesic agent; Z88.8 Allergy status to other drugs, medicaments and biological substances
CPT/HCPCS: 36415; 80053; 81001; 81025; 85027; 87086; 96360; 96361; 96372; 99285; J0500; J7030

== ENCOUNTER → 2016-12-06 | Outpatient (CLI) | payer OTHER ==
[2016-11-12 11:30] VITALS: BP 111/68
[~2016-12-06] MED LIST changes: +BARIUM SULFATE 60% 355 ML SUSP PO ONE; +DICY10CA53 PO
--- NOTE | 2016-12-06 13:08 | RAD ---
Small bowel series, 12/06/2016: History: Abdominal pain, diarrhea The preliminary abdominal images demonstrated a nonspecific gas pattern. There is a moderate amount of stool throughout the colon. Overhead and spot films were obtained following oral ingestion of liquid barium. 0.6 minutes of fluoroscopy time was utilized. 4 fluoroscopic spot images were recorded. The small bowel loops are of normal caliber with no evidence of thickening of their folds. There is normal transit of the barium through the small bowel into the colon. The terminal ileum was well-visualized and shows no abnormality. IMPRESSION: No significant small bowel abnormality is detected.
== END | disposition home or self-care (01) ==
LOC: RAD 09:48
PROVIDERS: ATTEND Internal Medicine Gastroenterology
DX: R10.9 Unspecified abdominal pain (principal); R19.7 Diarrhea, unspecified
CPT/HCPCS: 74250

== ENCOUNTER → 2017-01-05 | Day surgery (SDC) | payer OTHER ==
[~2017-01-05] MED LIST changes: -BARIUM SULFATE 60% 355 ML SUSP PO ONE; +HYDROmorphone 2 MG/ML VIAL IV PRN; +IV RINGERS,LACTATED 1000ML 1,000 ML IV SCH; +LIDOCAINE 1% PF 2 ML VIAL. ID PRN; +MORPHINE SULFATE 2 MG/ML DISP.SYRIN. IV PRN; +NAPR-695 PO; -NAPR375T3 PO; +ONDANSETRON PF 4 MG/2 ML VIAL. IV PRN; +PROCHLORPERAZINE 10 MG/2 ML VIAL. IV PRN; +PROPOFOL 20 ML IV ONE; +PROPOFOL 40 ML IV ONE; +fentaNYL PF VIAL 100 MCG/2 ML VIAL IV PRN
[2017-01-05 08:10] LABS: NEG OBC UR NEG; POS OBC UR POS
--- NOTE | 2017-01-05 09:11 | HP ---
ADMIT DATE: 01/05/2017 DATE OF SERVICE: 01/05/2017 HISTORY OF PRESENT ILLNESS: The patient is a 26-year-old female with past medical history significant for eosinophilic esophagitis is seen with persistent diarrhea. She has been on medical therapy with Prilosec, elimination diet as well as Colestid without significant improvement. She has diarrhea 3-4 times daily. There has been no bleeding. There is no family history of inflammatory bowel disease; however, there is history of colon polyps with her mother. She does note low back pain, has some extraintestinal manifestations of possible ____. With the continued symptoms, she requests additional evaluation. PAST MEDICAL HISTORY: Status post cholecystectomy, asthma, eosinophilic esophagitis. ALLERGIES: SULFA, CIPRO, CODEINE. MEDICATIONS: Include Tylenol, Ventolin, Colace. SOCIAL HISTORY: Nondrinker, nonsmoker. FAMILY HISTORY: Significant for diabetes in her mother as well as colon polyps. REVIEW OF SYSTEMS: Per records. PAST SURGICAL HISTORY: Status post cholecystectomy. PHYSICAL EXAMINATION: GENERAL: Reveals a well-nourished, well-developed female. VITAL SIGNS: Temperature is 98.1, pulse 91, respirations 20. HEENT: Normocephalic and atraumatic. Pupils and extraocular muscles not tested. Sclerae anicteric. NECK: Supple. LUNGS: Clear. CARDIOVASCULAR: Reveals S1, S2 without S3, S4 or appreciable murmur. ABDOMEN: Reveals a soft abdomen, normal bowel sounds, without appreciable hepatosplenomegaly, status post cholecystectomy. EXTREMITIES: Reveals no cyanosis, clubbing or edema. IMPRESSION: Diarrhea, status post cholecystectomy, unresponsive to Colestid. Differential includes microscopic colitis, collagenous colitis, inflammatory bowel disease, IBS. Therefore, recommend a colonoscopy with possible biopsy. Risks and benefits of procedure have been discussed. The patient is willing to proceed at this time. KIMBER WONG MD DR: SHERMAN/natanael JOB#: [id number] / [id number]
[2017-01-05 09:34] VITALS: BP 115/62
--- NOTE | 2017-01-08 11:03 | PATHOLOGY ---
PATHOLOGY REPORT * * * * * * * * FINAL DIAGNOSIS: Colonic mucosa "random colon biopsies": - No diagnostic changes. - There is no evidence of acute cryptitis, granulomas, adenomatous changes or microscopic colitis or malignancy. (SHA:pit; 01/08/2017) REPORT ELECTRONICALLY SIGNED BY: Michael Cabral M.D. DATE/TIME: 01/08/2017 11:02 * * * * * * * * GROSS PATHOLOGY: Received in formalin labeled "Indigo Levy, random colon biopsies," are multiple segments of li soft tissue measuring from 0.1 up to 0.3 cm in maximum dimension. The specimen is submitted entirely in cassette A1. (JPM; 01/05/17) INITIAL CPT CODE(S): A; 72527 Professional services performed [place] [facility] [address] Technical services performed by [facility] at [address] [place] [address] [address] [address]. SPECIMEN(S) RECEIVED: A.Random colon biopsy CLINICAL HISTORY: Diarrhea; screening PATIENT: TYSHAWN LOPEZ R /AGE: 3 1990 (Age: 26) PATIENT #: [id number] ALT CASE #: SPECIMEN COLLECTION DATE: 01/05/2017 SPECIMEN RECEIVED DATE: 01/05/2017 [facility] - [address] [place] [address] - PHONE: [phone] * * * END OF REPORT * * *
== END | disposition home or self-care (01) ==
LOC: ENDOS 06:58
PROVIDERS: ATTEND Internal Medicine Gastroenterology
DX: K64.0 First degree hemorrhoids (principal); J45.909 Unspecified asthma, uncomplicated; K21.9 Gastro-esophageal reflux disease without esophagitis; F41.9 Anxiety disorder, unspecified; Z87.440 Personal history of urinary (tract) infections; Z90.49 Acquired absence of other specified parts of digestive tract; Z88.6 Allergy status to analgesic agent; Z88.1 Allergy status to other antibiotic agents; Z88.2 Allergy status to sulfonamides; Z88.8 Allergy status to other drugs, medicaments and biological substances
CPT/HCPCS: 45380; 81025; 88305; J2704

== ENCOUNTER → 2017-01-25 | Outpatient (CLI) | payer OTHER ==
[2017-01-05 09:34] VITALS: BP 115/62
[~2017-01-25] MED LIST changes: -HYDROmorphone 2 MG/ML VIAL IV PRN; -IV RINGERS,LACTATED 1000ML 1,000 ML IV SCH; -LIDOCAINE 1% PF 2 ML VIAL. ID PRN; -MORPHINE SULFATE 2 MG/ML DISP.SYRIN. IV PRN; -ONDANSETRON PF 4 MG/2 ML VIAL. IV PRN; -PROCHLORPERAZINE 10 MG/2 ML VIAL. IV PRN; -PROPOFOL 20 ML IV ONE; -PROPOFOL 40 ML IV ONE; -fentaNYL PF VIAL 100 MCG/2 ML VIAL IV PRN
--- NOTE | 2017-01-25 10:58 | RAD ---
Pelvic ultrasound, 01/25/2017: History: Ovarian cysts Transabdominal and transvaginal scans were obtained. The uterus measures 7.9 x 3.4 x 5.7 cm. The central uterine echo complex measures 5 mm. No uterine abnormality is seen. The ovaries are of normal size. There is blood flow in both ovaries. No adnexal mass is seen. There is a trace amount of free fluid in the pelvis. This amount of fluid can be on a physiologic basis. IMPRESSION: No significant pelvic abnormality is detected.
== END | disposition home or self-care (01) ==
LOC: US 08:36
PROVIDERS: ATTEND Family Medicine
DX: N83.201 Unspecified ovarian cyst, right side (principal); N83.202 Unspecified ovarian cyst, left side; Z87.42 Personal history of other diseases of the female genital tract
CPT/HCPCS: 76830; 76856

== ENCOUNTER 2017-05-25 22:01 | Emergency (ER) | payer OTHER ==
[2017-05-25 22:55] LABS: URINE HCG POC HCG NEGATIVE (Negative)
[2017-05-25 23:07] LABS: BILIRUBIN,URINE NEGATIVE (NEG); CLARITY,URINE CLEAR; COLOR,URINE YELLOW; GLUCOSE,URINE NEGATIVE (NEG); NITRITE,URINE NEGATIVE (NEG); PH,URINE 6.5; PROTEIN,URINE NEGATIVE (NEG-TRACE); UROBILINOGEN,URINE 0.2 mg/dL (0.2 mg/dL)
[2017-05-25] MEDS: PHENAZOPYRIDINE 200 MG TABLET. PO ×2 (23:15)
[2017-05-25] MEDS: fentaNYL PF VIAL 100 MCG/2 ML VIAL IM ×4 (23:15→23:20)
[2017-05-25 23:24] LABS: BACTERIA,URINE MANY /HPF (0-FEW); RBC,URINE 0 /HPF (0-2); SQUAMOUS EPITHELIAL CELL,UR FEW /LPF
== END 2017-05-26 00:26 | disposition home or self-care (01) ==
LOC: ER 05-26 00:26
DX: R35.0 Frequency of micturition (principal); M54.6 Pain in thoracic spine; R11.0 Nausea; J45.909 Unspecified asthma, uncomplicated; Z87.440 Personal history of urinary (tract) infections; Z88.2 Allergy status to sulfonamides; Z88.1 Allergy status to other antibiotic agents; Z88.5 Allergy status to narcotic agent; Z88.8 Allergy status to other drugs, medicaments and biological substances
CPT/HCPCS: 81001; 81025; 87086; 99284; J3010

== ENCOUNTER 2017-06-28 09:46 | Emergency (ER) | payer OTHER ==
[2017-06-28 10:14] LABS: URINE HCG POC HCG NEGATIVE (Negative)
[2017-06-28] MEDS: KETOROLAC 30 MG/ML INJ. IV (10:42)
[2017-06-28] MEDS: IV NORMAL SALINE 1000ML BAG 1,000 ML IV (10:42)
[2017-06-28 10:43] LABS: BILIRUBIN,URINE NEGATIVE (NEG); CLARITY,URINE CLEAR; COLOR,URINE YELLOW; GLUCOSE,URINE NEGATIVE (NEG); NITRITE,URINE NEGATIVE (NEG); PROTEIN,URINE NEGATIVE (NEG-TRACE); UROBILINOGEN,URINE 0.2 mg/dL (0.2 mg/dL)
[2017-06-28] MEDS: ONDANSETRON PF 4 MG/2 ML VIAL. IV (10:43)
[2017-06-28 10:49] LABS: ADD MAN DIFF? NO
[2017-06-28 10:53] LABS: BASO # 0.1 x10^3/uL (0.0-0.2); BASO % 1 % (0-3); EOS # 0.2 x10^3/uL (0.0-0.7); EOS % 2 % (0-3); HEMATOCRIT 39.2 % (36.0-47.0); HEMOGLOBIN 13.5 g/dL (12.0-15.5); LYMPH # 1.6 x10^3/uL (1.0-4.8); LYMPH % 22 % (24-48); MEAN CORPUSCULAR HEMOGLOBIN 30 pg (25-35); MEAN CORPUSCULAR HGB CONC 34 g/dL (31-37); MEAN CORPUSCULAR VOLUME 86 fL (79-100); MONO # 0.4 x10^3/uL (0.0-1.1); MONO % 6 % (0-9); NEUT % 69 % (31-73); PLATELET COUNT 232 x10^3/uL (140-400); RED BLOOD COUNT 4.57 x10^6/uL (3.50-5.40); RED CELL DISTRIBUTION WIDTH 13.2 % (11.5-14.5); WHITE BLOOD COUNT 7.4 x10^3/uL (4.0-11.0)
[2017-06-28 10:58] LABS: BACTERIA,URINE FEW /HPF (0-FEW); RBC,URINE 0 /HPF (0-2); SQUAMOUS EPITHELIAL CELL,UR MANY /LPF
[2017-06-28 10:59] LABS: ANION GAP 8 (6-14); BLOOD UREA NITROGEN 6 mg/dL (7-20); BUN/CREATININE RATIO 9 (6-20); CALCIUM 9.4 mg/dL (8.5-10.1); CARBON DIOXIDE 25 mmol/L (21-32); CHLORIDE 104 mmol/L (98-107); CREATININE 0.7 mg/dL (0.6-1.0); GFR 99.6; GLUCOSE 108 mg/dL (70-99); POTASSIUM 3.8 mmol/L (3.5-5.1); SODIUM 137 mmol/L (136-145)
[2017-06-28 11:05] LABS: ALBUMIN 3.8 g/dL (3.4-5.0); ALBUMIN/GLOBULIN RATIO 0.9 (1.0-1.7); ALK PHOS 95 U/L (46-116); ALT (SGPT) 27 U/L (14-59); AST (SGOT) 15 U/L (15-37); LIPASE 89 U/L (73-393); TOTAL BILIRUBIN 0.2 mg/dL (0.2-1.0); TOTAL PROTEIN 8.2 g/dL (6.4-8.2)
== END 2017-06-28 12:33 | disposition home or self-care (01) ==
LOC: ER 09:46
DX: N12 Tubulo-interstitial nephritis, not specified as acute or chronic (principal); J45.909 Unspecified asthma, uncomplicated; Z90.49 Acquired absence of other specified parts of digestive tract; Z87.440 Personal history of urinary (tract) infections; Z88.2 Allergy status to sulfonamides; Z88.1 Allergy status to other antibiotic agents; Z88.5 Allergy status to narcotic agent; Z88.8 Allergy status to other drugs, medicaments and biological substances; Z88.6 Allergy status to analgesic agent
CPT/HCPCS: 36415; 80053; 81001; 81025; 83690; 85025; 87086; 96361; 96365; 96375; 99284-25; J0690; J1885; J2405; J7030

== ENCOUNTER 2017-07-01 00:01 | Emergency (ER) | payer OTHER ==
[2017-07-01 00:25] LABS: URINE HCG POC HCG NEGATIVE (Negative)
[2017-07-01 01:24] LABS: BILIRUBIN,URINE NEGATIVE (NEG); CLARITY,URINE CLEAR; COLOR,URINE YELLOW; GLUCOSE,URINE NEGATIVE (NEG); NITRITE,URINE NEGATIVE (NEG); PH,URINE 6.5; PROTEIN,URINE NEGATIVE (NEG-TRACE); UROBILINOGEN,URINE 0.2 mg/dL (0.2 mg/dL)
[2017-07-01] MEDS: ONDANSETRON ODT 4 MG TAB.RAPDIS. PO (01:30)
[2017-07-01] MEDS: KETOROLAC 30 MG/ML INJ. IV (01:30)
[2017-07-01] MEDS: IV NORMAL SALINE 1000ML BAG 1,000 ML IV (01:30)
[2017-07-01 01:38] LABS: BACTERIA,URINE 0 /HPF (0-FEW); RBC,URINE 0 /HPF (0-2); SQUAMOUS EPITHELIAL CELL,UR FEW /LPF
== END 2017-07-01 02:32 | disposition home or self-care (01) ==
LOC: ER 00:01
DX: M54.5 Low back pain (principal); F41.9 Anxiety disorder, unspecified; B34.9 Viral infection, unspecified; J45.909 Unspecified asthma, uncomplicated; Z87.440 Personal history of urinary (tract) infections; Z90.49 Acquired absence of other specified parts of digestive tract; Z88.2 Allergy status to sulfonamides; Z88.1 Allergy status to other antibiotic agents; Z88.5 Allergy status to narcotic agent; Z88.8 Allergy status to other drugs, medicaments and biological substances
CPT/HCPCS: 81001; 81025; 96361; 96374; 99284-25; J1885; J7030; Q0162

== ENCOUNTER → 2017-08-09 | Outpatient (CLI) | payer OTHER | END | disposition home or self-care (01) | LOC: US 15:04 | DX: N60.01 Solitary cyst of right breast (principal) | CPT/HCPCS: 76641 ==

== ENCOUNTER 2018-03-16 18:19 | Emergency (ER) | payer OTHER ==
[~2018-03-16] VITALS: Ht 167.6 cm; Wt 97.5 kg
[~2018-03-16 18:19] MED LIST changes: +CEPH-264 PO; +CYCL10TA2 PO; -HYDR-2762 PO; +HYDR-2765 PO; -OXYC-323 PO; +OXYC1TAB15 PO; +PHEN100T82 PO
--- NOTE | 2018-03-16 19:10 | PHYS DOC ---
Past Medical History Past Medical History: Anxiety, Asthma, Kidney Infection, UTI, Other Additional Past Medical Histor: frequent UTIs Past Surgical History: Cholecystectomy Alcohol Use: None Drug Use: None Adult General Chief Complaint Chief Complaint: SHORTNESS OF BREATH HPI HPI Patient is a 27 year old female who presents with chest pain and shortness of breath. She has felt this way since last night she has both sharp and dull pressure in the left side of the chest that feels tight increased shortness of breath pleuritic pain is noted she had a mild cough last night she has mild asthma she tried an inhaler minimal relief from that. She did notice some wheezing no fever no leg pain. No abdominal pain no vaginal discharge no leak of fluid she is feeling the baby moving. She has never felt this way before she is also feeling her heart racing at times as well. Review of Systems Review of Systems Constitutional: Denies fever or chills [] Eyes: Denies change in visual acuity, redness, or eye pain [] HENT: Denies nasal congestion or sore throat [] GI: Denies abdominal pain, nausea, vomiting, bloody stools or diarrhea [] Neurologic: Denies headache, focal weakness or sensory changes [] Endocrine: Denies polyuria or polydipsia [] All other systems were reviewed and found to be within normal limits, except as documented in this note. Current Medications Current Medications Current Medications Medications (Trade) Dose Ordered Sig/Andressa Start Time Stop Time Status Last Admin Dose Admin Sodium Chloride 1,000 ml @ 1,000 mls/hr 1X ONCE 03/16/18 19:15 03/16/18 20:14 DC 03/16/18 19:25 1,000 MLS/HR Allergies Allergies Allergies Coded Allergies Type Severity Reaction Last Updated Verified Sulfa (Sulfonamide Antibiotics) Allergy Intermediate Rash 03/16/18 Yes ciprofloxacin Allergy Intermediate Rash, JOINT PAIN 03/16/18 Yes codeine Allergy Mild abdominal pain 03/16/18 Yes bupropion Adverse Reaction Intermediate SUICIDDAL THOUGHTS 03/16/18 Yes hydrocodone Adverse Reaction Intermediate ABDOMINAL PAIN 03/16/18 Yes paroxetine Adverse Reaction Intermediate PSYCHOSIS 03/16/18 Yes cephalexin Adverse Reaction Mild NAUSEA, DIZZINESS 03/16/18 Yes ibuprofen Adverse Reaction Mild NAUSEA 03/16/18 Yes Physical Exam Physical Exam Constitutional: Well developed, well nourished, no acute distress, non-toxic appearance. [] HENT: Normocephalic, atraumatic, bilateral external ears normal, oropharynx moist, no oral exudates, nose normal. [] Eyes: PERRLA, EOMI, conjunctiva normal, no discharge. [] Neck: Normal range of motion, no tenderness, supple, no stridor. [] Cardiovascular tachycardic the lungs are clear to auscultation bilaterally there is mild tachypnea Lungs & Thorax: Bilateral breath sounds clear to auscultation [] Abdomen: Gravid nontender Skin: Warm, dry, no erythema, no rash. [] Back: No tenderness, no CVA tenderness. [] Extremities: No tenderness, no cyanosis, no clubbing, ROM intact, symmetric edema bilateral lower extremities consistent with known Neurologic: Alert and oriented X 3, normal motor function, normal sensory function, no focal deficits noted. [] Psychologic: Affect normal, judgement normal, mood normal. [] Current Patient Data Vital Signs Vital Signs Date Time Temp Pulse Resp B/P (MAP) Pulse Ox O2 Delivery O2 Flow Rate FiO2 03/16/18 23:31 96 20 110/76 (87) 100 Room Air 03/16/18 18:37 98.5 98.5 Lab Values Laboratory Tests Test 03/16/18 19:00 03/16/18 19:10 03/16/18 19:15 Urine Collection Type Unknown Urine Color Yellow Urine Clarity Cloudy Urine pH 7.5 Urine Specific [place] 1.015 Urine Protein Negative mg/dL (NEG-TRACE) Urine Glucose (UA) Negative mg/dL (NEG) Urine Ketones (Stick) Negative mg/dL (NEG) Urine Blood Negative (NEG) Urine Nitrite Negative (NEG) Urine Bilirubin Negative (NEG) Urine Urobilinogen Dipstick 0.2 mg/dL (0.2 mg/dL) Urine Leukocyte Esterase Small (NEG) Urine RBC 0 /HPF (0-2) Urine WBC 1-4 /HPF (0-4) Urine Squamous Epithelial Cells Mod /LPF Urine Bacteria Few /HPF (0-FEW) White Blood Count 9.5 x10^3/uL (4.0-11.0) Red Blood Count 3.62 x10^6/uL (3.50-5.40) Hemoglobin 11.2 g/dL (12.0-15.5) L Hematocrit 31.0 % (36.0-47.0) L Mean Corpuscular Volume 86 fL (79-100) Mean Corpuscular Hemoglobin 31 pg (25-35) Mean Corpuscular Hemoglobin Concent 36 g/dL (31-37) Red Cell Distribution Width 13.5 % (11.5-14.5) Platelet Count 232 x10^3/uL (140-400) Neutrophils (%) (Auto) 65 % (31-73) Lymphocytes (%) (Auto) 24 % (24-48) Monocytes (%) (Auto) 8 % (0-9) Eosinophils (%) (Auto) 3 % (0-3) Basophils (%) (Auto) 1 % (0-3) Neutrophils # (Auto) 6.2 x10^3uL (1.8-7.7) Lymphocytes # (Auto) 2.2 x10^3/uL (1.0-4.8) Monocytes # (Auto) 0.7 x10^3/uL (0.0-1.1) Eosinophils # (Auto) 0.3 x10^3/uL (0.0-0.7) Basophils # (Auto) 0.1 x10^3/uL (0.0-0.2) Prothrombin Time 12.7 SEC (11.7-14.0) Prothrombin Time INR 1.0 (0.8-1.1) Sodium Level 139 mmol/L (136-145) Potassium Level 3.5 mmol/L (3.5-5.1) Chloride Level 103 mmol/L (98-107) Carbon Dioxide Level 23 mmol/L (21-32) Anion Gap 13 (6-14) Blood Urea Nitrogen 7 mg/dL (7-20) Creatinine 0.6 mg/dL (0.6-1.0) Estimated GFR (Cockcroft-Gault) 118.2 BUN/Creatinine Ratio 12 (6-20) Glucose Level 112 mg/dL (70-99) H Calcium Level 9.4 mg/dL (8.5-10.1) Total Bilirubin 0.2 mg/dL (0.2-1.0) Aspartate Amino Transferase (AST) 13 U/L (15-37) L Alanine Aminotransferase (ALT) 16 U/L (14-59) Alkaline Phosphatase 120 U/L (46-116) H Troponin I Quantitative < 0.017 ng/mL (0.000-0.055) HY-Egv-S-Type Natriuretic Peptide 17 pg/mL (0-124) Total Protein 7.1 g/dL (6.4-8.2) Albumin 2.7 g/dL (3.4-5.0) L Albumin/Globulin Ratio 0.6 (1.0-1.7) L POC Urine HCG, Qualitative Hcg positive (Negative) Laboratory Tests 03/16/18 19:10 Laboratory Tests 03/16/18 19:10 EKG EKG []EKG does show a sinus tachycardia at a rate of 122 there are no acute ischemic changes noted there is no STEMI interpreted by me the time of encounter. Radiology/Procedures Radiology/Procedures [] Impressions: Findings: There is normal duplex flow, color flow and compressibility of all visualized vein segments. No evidence of deep venous thrombus is present. Impression: No evidence of DVT. Electronically signed by: Oral Dowell MD (03/16/2018 9:14 PM) [facility] DICTATED and SIGNED BY: ORAL DOWELL MD DATE: 03/16/182112 Indication: Dyspnea pt is
5.5mci 99mTc MAA 14.1mci 133XE Gas Technique: Static images are obtained of both lungs following inhalation of 14.1 mCi of xenon-133 and again following IV administration of 5.5 mCi of 99 M technetium MAA. Comparison: Chest x-ray from March 16, 2018 Findings: No definite mismatched defects that are worse on the perfusion when compared to the ventilation images. Patchy defects are seen both on the ventilation and perfusion images. Impression: 1. Low probability of pulmonary embolus. Electronically signed by: Dontae Zapata MD (03/17/2018 1:30 AM) [facility] DICTATED and SIGNED BY: DONTAE ZAPATA MD DATE: 03/17/18 0122 Course & Med Decision Making Course & Med Decision Making Pertinent Labs and Imaging studies reviewed. (See chart for details) Shortness of breath and chest discomfort with tachycardia rate into the 130s in the emergency room 31 weeks lungs are clear on examination plan for chest x-ray and compression ultrasound bilateral lower extremities to start. If these are negative the patient may need a VQ scan. Did talk with her about the risks and benefits of radiation the risk of a missed PE to her health as well as the health of the baby versus the risk of the radiation associated with this study she does consent to the procedure. Patient is a history of asthma but was really do sound clear. She really does not look that anxious although I suppose that is on the differential as well. Also consider peripartum cardio myopathy as well as a chest x-ray and BnP for that.[] Final ER plan: Extensive workup was completed patient is no evidence of DVT or PE. hr improved, likley anxiety bp was in the 120's Dragon Disclaimer Dragon Disclaimer This electronic medical record was generated, in whole or in part, using a voice recognition dictation system. Departure Departure Impression: Primary Impression: Anxiety Disposition: 01 HOME, SELF-CARE Condition: STABLE Referrals: SERGIO GILMORE (PCP) ASTRID CAMP MD Mar 16, 2018 19:10
[2018-03-16] MEDS ORDERED: IV NORMAL SALINE 1000ML BAG 1,000 ML IV ONE (19:15)
[2018-03-16 19:23] LABS: BASO # 0.1 x10^3/uL (0.0-0.2); BASO % 1 % (0-3); EOS # 0.3 x10^3/uL (0.0-0.7); EOS % 3 % (0-3); HEMOGLOBIN 11.2 g/dL (12.0-15.5); LYMPH # 2.2 x10^3/uL (1.0-4.8); LYMPH % 24 % (24-48); MEAN CORPUSCULAR HEMOGLOBIN 31 pg (25-35); MEAN CORPUSCULAR HGB CONC 36 g/dL (31-37); MEAN CORPUSCULAR VOLUME 86 fL (79-100); MONO # 0.7 x10^3/uL (0.0-1.1); MONO % 8 % (0-9); NEUT # 6.2 x10^3uL (1.8-7.7); NEUT % 65 % (31-73); PLATELET COUNT 232 x10^3/uL (140-400); RED BLOOD COUNT 3.62 x10^6/uL (3.50-5.40); RED CELL DISTRIBUTION WIDTH 13.5 % (11.5-14.5); WHITE BLOOD COUNT 9.5 x10^3/uL (4.0-11.0)
[2018-03-16 19:26] LABS: BILIRUBIN,URINE NEGATIVE (NEG); CLARITY,URINE CLOUDY; COLOR,URINE YELLOW; NITRITE,URINE NEGATIVE (NEG); PH,URINE 7.5; PROTEIN,URINE NEGATIVE (NEG-TRACE); UROBILINOGEN,URINE 0.2 mg/dL (0.2 mg/dL)
[2018-03-16 19:38] LABS: RBC,URINE 0 /HPF (0-2)
[2018-03-16 19:39] LABS: BACTERIA,URINE FEW /HPF (0-FEW); SQUAMOUS EPITHELIAL CELL,UR MOD /LPF
[2018-03-16 19:42] LABS: CALCIUM 9.4 mg/dL (8.5-10.1); CREATININE 0.6 mg/dL (0.6-1.0); GFR 118.2; POTASSIUM 3.5 mmol/L (3.5-5.1)
[2018-03-16 19:47] LABS: ALBUMIN 2.7 g/dL (3.4-5.0); ALBUMIN/GLOBULIN RATIO 0.6 (1.0-1.7); TOTAL BILIRUBIN 0.2 mg/dL (0.2-1.0); TOTAL PROTEIN 7.1 g/dL (6.4-8.2)
[2018-03-16 20:11] LABS: PROTHROMBIN TIME PATIENT 12.7 SEC (11.7-14.0)
--- NOTE | 2018-03-16 21:17 | RAD ---
Examination: Bilateral Lower Extremity Venous Doppler Ultrasound History: Bilateral lower extremity swelling, shortness of breath Comparison: 05/31/2016 Procedure: Joseph scale, color flow 2D and spectal waveform analysis images are obtained with and without compression in the area of the common femoral vein, superficial femoral vein - femoral vein junction, main femoral vein (superficial femoral vein) and popliteal vein. Veins of the proximal calf are also imaged. Findings: There is normal duplex flow, color flow and compressibility of all visualized vein segments. No evidence of deep venous thrombus is present. Impression: No evidence of DVT. Electronically signed by: Oral Dowell MD (03/16/2018 9:14 PM) [facility]
--- NOTE | 2018-03-16 21:18 | RAD ---
EXAM: CHEST 1 VIEW History: Shortness of breath COMPARISON: None available. TECHNIQUE: Single portable radiograph of the chest FINDINGS: The cardiac silhouette is unremarkable. The lungs are clear bilaterally. The costophrenic sulci are clear and well demarcated. IMPRESSION: No radiographic evidence of an acute cardiopulmonary process. Electronically signed by: Oral Dowell MD (03/16/2018 9:14 PM) [facility]
[2018-03-16 23:31] VITALS: BP 110/76
--- NOTE | 2018-03-17 01:34 | RAD ---
Indication: Dyspnea pt is
5.5mci 99mTc MAA 14.1mci 133XE Gas Technique: Static images are obtained of both lungs following inhalation of 14.1 mCi of xenon-133 and again following IV administration of 5.5 mCi of 99 M technetium MAA. Comparison: Chest x-ray from March 16, 2018 Findings: No definite mismatched defects that are worse on the perfusion when compared to the ventilation images. Patchy defects are seen both on the ventilation and perfusion images. Impression: 1. Low probability of pulmonary embolus. Electronically signed by: Elijah Gilliam MD (03/17/2018 1:30 AM) [facility]
--- NOTE | 2018-03-17 08:21 | EKG ---
[facility] [address] [place] [address] Test Date: 2018-03-16 Test Time: 18:44:53 Pat Name: TYSHAWN LOPEZ Department: Room: Gender: F Carpet [employer]oom [employer]er: : 1990 Requested By: ASTRID CAMP Order Number: [id number] Reading MD: Kervin Mcclure Measurements Intervals [place] Rate: 122 P: 41 NM: 118 QRS: 15 QRSD: 80 T: 4 QT: 358 QTc: 511 Interpretive Statements SINUS TACHYCARDIA LEFT ATRIAL ABNORMALITY ABNORMAL ECG Electronically Signed On 03-18-2018 8:57:46 SENIOR EXAMINER by Kervin Mcclure
== END 2018-03-17 02:10 | disposition home or self-care (01) ==
LOC: ER 18:19
DX: O99.343 Other mental disorders complicating pregnancy, third trimester (principal); F41.9 Anxiety disorder, unspecified; R07.89 Other chest pain; R06.02 Shortness of breath; Z88.1 Allergy status to other antibiotic agents; O99.513 Diseases of the respiratory system complicating pregnancy, third trimester; J45.909 Unspecified asthma, uncomplicated; Z87.440 Personal history of urinary (tract) infections; Z90.49 Acquired absence of other specified parts of digestive tract; Z88.5 Allergy status to narcotic agent; Z88.2 Allergy status to sulfonamides
CPT/HCPCS: 36415; 71045; 78582; 80053; 81001; 81025; 83880; 84484; 85025; 85610; 87086; 93005; 93970; 96374; 99284; A9540; A9558; J7030

== ENCOUNTER 2018-04-11 06:58 | Observation (INO) | payer OTHER ==
[2018-04-11] MEDS ORDERED: ONDANSETRON PF 4 MG/2 ML VIAL. ONE (07:54)
[2018-04-11] MEDS ORDERED: IV RINGERS,LACTATED 1000ML 1,000 ML IV SCH (08:00)
[2018-04-11] MEDS ORDERED: LOPERAMIDE 2 MG/10 ML ORAL SOLUTION. PO PRN (08:00)
[2018-04-11] MEDS ORDERED: ONDANSETRON PF 4 MG/2 ML VIAL. IV PRN (08:00)
[2018-04-11 08:13] LABS: BASO % 0 % (0-3); EOS # 0.2 x10^3/uL (0.0-0.7); EOS % 2 % (0-3); HEMATOCRIT 32.6 % (36.0-47.0); HEMOGLOBIN 11.3 g/dL (12.0-15.5); LYMPH # 1.5 x10^3/uL (1.0-4.8); LYMPH % 14 % (24-48); MEAN CORPUSCULAR HEMOGLOBIN 29 pg (25-35); MEAN CORPUSCULAR HGB CONC 35 g/dL (31-37); MEAN CORPUSCULAR VOLUME 85 fL (79-100); MONO # 0.5 x10^3/uL (0.0-1.1); MONO % 4 % (0-9); NEUT # 8.5 x10^3uL (1.8-7.7); NEUT % 80 % (31-73); PLATELET COUNT 221 x10^3/uL (140-400); RED BLOOD COUNT 3.86 x10^6/uL (3.50-5.40); WHITE BLOOD COUNT 10.7 x10^3/uL (4.0-11.0)
[2018-04-11 08:34] LABS: ALBUMIN 2.9 g/dL (3.4-5.0); ALBUMIN/GLOBULIN RATIO 0.8 (1.0-1.7); CALCIUM 8.8 mg/dL (8.5-10.1); CREATININE 0.6 mg/dL (0.6-1.0); GFR 118.2; POTASSIUM 4.1 mmol/L (3.5-5.1); TOTAL BILIRUBIN 0.2 mg/dL (0.2-1.0); TOTAL PROTEIN 6.6 g/dL (6.4-8.2)
[2018-04-11 08:46] LABS: BILIRUBIN,URINE NEGATIVE (NEG); CLARITY,URINE CLEAR; COLOR,URINE YELLOW; NITRITE,URINE NEGATIVE (NEG); PH,URINE 6.5; PROTEIN,URINE NEGATIVE (NEG-TRACE); UROBILINOGEN,URINE 0.2 mg/dL (0.2 mg/dL)
[2018-04-11 09:00] LABS: BACTERIA,URINE MODERATE /HPF (0-FEW); RBC,URINE 0 /HPF (0-2); SQUAMOUS EPITHELIAL CELL,UR OCC /LPF
== END 2018-04-11 11:30 | disposition home or self-care (01) ==
LOC: 3 SO LND 06:58
PROVIDERS: ADMIT Obstetrics & Gynecology; ATTEND Obstetrics & Gynecology
DX: O21.2 Late vomiting of pregnancy (principal); Z3A.34 34 weeks gestation of pregnancy
CPT/HCPCS: 36415; 80053; 81001; 85025; 87086; 96374; G0378; G0379; J2405

== ENCOUNTER 2018-07-11 04:01 | Emergency (ER) | payer OTHER ==
[~2018-07-11] VITALS: Ht 166.4 cm; Wt 91.2 kg
[2018-07-11] MEDS ORDERED: ONDANSETRON PF 4 MG/2 ML VIAL. IV ONE (04:30)
[2018-07-11] MEDS ORDERED: KETOROLAC 30 MG/ML VIAL. IV ONE (04:30)
[2018-07-11 04:41] LABS: BASO # 0.1 x10^3/uL (0.0-0.2); BASO % 1 % (0-3); EOS # 0.5 x10^3/uL (0.0-0.7); EOS % 8 % (0-3); HEMATOCRIT 35.5 % (36.0-47.0); HEMOGLOBIN 11.5 g/dL (12.0-15.5); LYMPH # 2.8 x10^3/uL (1.0-4.8); LYMPH % 41 % (24-48); MEAN CORPUSCULAR HEMOGLOBIN 26 pg (25-35); MEAN CORPUSCULAR HGB CONC 33 g/dL (31-37); MEAN CORPUSCULAR VOLUME 80 fL (79-100); MONO # 0.5 x10^3/uL (0.0-1.1); MONO % 7 % (0-9); NEUT % 44 % (31-73); PLATELET COUNT 272 x10^3/uL (140-400); RED BLOOD COUNT 4.42 x10^6/uL (3.50-5.40); WHITE BLOOD COUNT 6.8 x10^3/uL (4.0-11.0)
[2018-07-11 04:47] LABS: BILIRUBIN,URINE NEGATIVE (NEG); CLARITY,URINE CLEAR; COLOR,URINE YELLOW; NITRITE,URINE NEGATIVE (NEG); PROTEIN,URINE NEGATIVE (NEG-TRACE); UROBILINOGEN,URINE 0.2 mg/dL (0.2 mg/dL)
[2018-07-11 04:54] LABS: CREATININE 0.6 mg/dL (0.6-1.0); GFR 117.4; POTASSIUM 3.5 mmol/L (3.5-5.1)
--- NOTE | 2018-07-11 04:55 | PHYS DOC ---
Past Medical History Past Medical History: Anxiety, Asthma, Kidney Infection, UTI, Other Additional Past Medical Histor: frequent UTIs Past Surgical History: Cholecystectomy Alcohol Use: None Drug Use: None Adult General Chief Complaint Chief Complaint: ABDOMINAL PAIN HPI HPI Patient is a 28-year-old 2 month female who presents the emergency department this morning with abdominal pain which started a couple days ago. Her pain starts in the lower back and extends to her lower abdomen, pelvis, and upper back. She describes pain as intermittent, dull and achy which becomes sharp. She has tried ibuprofen which has helped alleviate her symptoms temporarily. Laying down and bending over makes the pain worse. She also complains of associated nausea, chills, subjective fever, left calf pain, dyspareunia and burning with intercourse. Review of Systems Review of Systems Constitutional: Admits subjective fever and chills. Eyes: Denies change in visual acuity, redness, or eye pain. HENT: Denies nasal congestion or sore throat. Respiratory: Denies cough or shortness of breath. Cardiovascular: Denies chest pain and palpitations. GI: Admits abdominal pain, nausea. Denies bloody stools or diarrhea. Admits to some constipation. : Denies dysuria or hematuria or frequency. Musculoskeletal: Admits low back pain, upper back pain. Integument: Denies rash or skin lesions. Neurologic: Denies headache, focal weakness or sensory changes. Complete systems were reviewed and found to be within normal limits, except as documented in this note. Current Medications Current Medications Current Medications Medications (Trade) Dose Ordered Sig/Andressa Start Time Stop Time Status Last Admin Dose Admin Ketorolac Tromethamine (Toradol 30mg Vial) 15 mg 1X ONCE 07/11/18 04:30 07/11/18 04:31 DC 07/11/18 05:53 15 MG Nitrofurantoin Macrocrystals (Macrobid) 100 mg 1X ONCE 07/11/18 06:15 07/11/18 06:16 UNV Ondansetron HCl (Zofran) 4 mg 1X ONCE 07/11/18 04:30 07/11/18 04:31 DC 07/11/18 05:53 4 MG Allergies Allergies Allergies Coded Allergies Type Severity Reaction Last Updated Verified Sulfa (Sulfonamide Antibiotics) Allergy Intermediate Rash 03/16/18 Yes ciprofloxacin Allergy Intermediate Rash, JOINT PAIN 03/16/18 Yes codeine Allergy Mild abdominal pain 03/16/18 Yes bupropion Adverse Reaction Intermediate SUICIDDAL THOUGHTS 03/16/18 Yes hydrocodone Adverse Reaction Intermediate ABDOMINAL PAIN 03/16/18 Yes paroxetine Adverse Reaction Intermediate PSYCHOSIS 03/16/18 Yes cephalexin Adverse Reaction Mild NAUSEA, DIZZINESS 03/16/18 Yes Physical Exam Physical Exam Constitutional: Well developed, well nourished, no acute distress, non-toxic appearance. HENT: Normocephalic, atraumatic, bilateral external ears normal, oropharynx moist, no oral exudates, nose normal. Eyes: PERRL, EOMI, conjunctiva normal, no discharge. Neck: Normal range of motion, no tenderness, supple, no stridor. Cardiovascular:Heart rate regular rhythm, no murmur. Lungs & Thorax: Bilateral breath sounds clear to auscultation. Abdomen: Bowel sounds normal, soft, no tenderness to palpation, no masses, no pulsatile masses. No tenderness to palpation. Skin: Warm, dry, no erythema, no rash. Back: No tenderness, no CVA tenderness. Extremities: No tenderness, no cyanosis, ROM intact, no edema. Neurologic: Alert and oriented X 3, normal motor function, normal sensory function, no focal deficits noted. Psychologic: Affect normal, judgement normal, mood normal. Current Patient Data Vital Signs Vital Signs Date Time Temp Pulse Resp B/P (MAP) Pulse Ox O2 Delivery O2 Flow Rate FiO2 07/11/18 04:10 98.0 91 16 137/79 (98) 100 Room Air 98.0 Lab Values Laboratory Tests Test 07/11/18 04:10 07/11/18 04:20 07/11/18 04:21 Urine Collection Type Unknown Urine Color Yellow Urine Clarity Clear Urine pH 6.0 Urine Specific [place] 1.010 Urine Protein Negative mg/dL (NEG-TRACE) Urine Glucose (UA) Negative mg/dL (NEG) Urine Ketones (Stick) Negative mg/dL (NEG) Urine Blood Trace (NEG) Urine Nitrite Negative (NEG) Urine Bilirubin Negative (NEG) Urine Urobilinogen Dipstick 0.2 mg/dL (0.2 mg/dL) Urine Leukocyte Esterase Small (NEG) Urine RBC Occ /HPF (0-2) Urine WBC 11-20 /HPF (0-4) Urine Squamous Epithelial Cells Mod /LPF Urine Bacteria Few /HPF (0-FEW) White Blood Count 6.8 x10^3/uL (4.0-11.0) Red Blood Count 4.42 x10^6/uL (3.50-5.40) Hemoglobin 11.5 g/dL (12.0-15.5) L Hematocrit 35.5 % (36.0-47.0) L Mean Corpuscular Volume 80 fL (79-100) Mean Corpuscular Hemoglobin 26 pg (25-35) Mean Corpuscular Hemoglobin Concent 33 g/dL (31-37) Red Cell Distribution Width 17.0 % (11.5-14.5) H Platelet Count 272 x10^3/uL (140-400) Neutrophils (%) (Auto) 44 % (31-73) Lymphocytes (%) (Auto) 41 % (24-48) Monocytes (%) (Auto) 7 % (0-9) Eosinophils (%) (Auto) 8 % (0-3) H Basophils (%) (Auto) 1 % (0-3) Neutrophils # (Auto) 3.0 x10^3uL (1.8-7.7) Lymphocytes # (Auto) 2.8 x10^3/uL (1.0-4.8) Monocytes # (Auto) 0.5 x10^3/uL (0.0-1.1) Eosinophils # (Auto) 0.5 x10^3/uL (0.0-0.7) Basophils # (Auto) 0.1 x10^3/uL (0.0-0.2) Sodium Level 138 mmol/L (136-145) Potassium Level 3.5 mmol/L (3.5-5.1) Chloride Level 101 mmol/L (98-107) Carbon Dioxide Level 28 mmol/L (21-32) Anion Gap 9 (6-14) Blood Urea Nitrogen 13 mg/dL (7-20) Creatinine 0.6 mg/dL (0.6-1.0) Estimated GFR (Cockcroft-Gault) 117.4 BUN/Creatinine Ratio 22 (6-20) H Glucose Level 106 mg/dL (70-99) H Calcium Level 9.0 mg/dL (8.5-10.1) Magnesium Level 2.0 mg/dL (1.8-2.4) Total Bilirubin 0.3 mg/dL (0.2-1.0) Aspartate Amino Transferase (AST) 20 U/L (15-37) Alanine Aminotransferase (ALT) 33 U/L (14-59) Alkaline Phosphatase 111 U/L (46-116) Total Protein 7.5 g/dL (6.4-8.2) Albumin 3.5 g/dL (3.4-5.0) Albumin/Globulin Ratio 0.9 (1.0-1.7) L Lipase 114 U/L (73-393) POC Urine HCG, Qualitative Hcg negative (Negative) Laboratory Tests 07/11/18 04:20 Laboratory Tests 07/11/18 04:20 EKG EKG [] Radiology/Procedures Radiology/Procedures PROCEDURE: PELVIS W/TV Pelvic ultrasound to include transabdominal and transvaginal imaging 07/03/2018 CLINICAL HISTORY: Pelvic pain for 2 days. TECHNIQUE: Using the distended urinary bladder as a sonographic window, a real-time ultrasound examination of the pelvis was performed. Additionally in an attempt to better evaluate the uterus and adnexa, a transvaginal ultrasound study was performed. Multiple images were obtained. FINDINGS: The uterus is within normal limits in size and echogenicity. It measures 7.9 x 6.4 x 5.0 cm in longitudinal, transverse, and AP dimensions. The endometrial echo complex measures 6 mm in thickness which is within normal limits. Both ovaries are within normal limits in size and echogenicity. The right ovary measures 2.3 x 2.1 x 1.5 cm in size. The left ovary measures 2.4 x 1.5 x 1.7 cm in size. No adnexal mass is seen. No free fluid is noted. IMPRESSION: Negative study. Electronically signed by: Tim Jenkins MD (07/11/2018 5:49 AM) [facility] Course & Med Decision Making Course & Med Decision Making Pertinent Labs and Imaging studies reviewed. (See chart for details) [] Dragon Disclaimer Dragon Disclaimer This electronic medical record was generated, in whole or in part, using a voice recognition dictation system. Departure Departure Impression: Primary Impression: UTI (urinary tract infection) Additional Impression: Pelvic pain Disposition: 01 HOME, SELF-CARE Condition: STABLE Referrals: SERGIO GILMORE (PCP) Patient Instructions: Pelvic Pain, Female, [id number], Urinary Tract Infection, [id number] Scripts Nitrofurantoin Monohyd/M-Cryst (MACROBID 100 MG CAPSULE) 100 Mg Capsule 1 CAP PO BID for UTI, #10 CAP Prov: GUILLE COE DO 07/11/18 Ondansetron (ONDANSETRON ODT) 4 Mg Tab.rapdis 1 TAB PO PRN Q6-8HRS PRN for NAUSEA, #16 TAB Prov: GUILLE COE DO 07/11/18 Problem Qualifiers Primary Impression: UTI (urinary tract infection) Urinary tract infection type: acute cystitis Hematuria presence: without hematuria Qualified Codes: N30.00 - Acute cystitis without hematuria GUILLE COE DO Jul 11, 2018 04:55
[2018-07-11 05:01] LABS: ALBUMIN 3.5 g/dL (3.4-5.0); ALBUMIN/GLOBULIN RATIO 0.9 (1.0-1.7); TOTAL BILIRUBIN 0.3 mg/dL (0.2-1.0); TOTAL PROTEIN 7.5 g/dL (6.4-8.2)
[2018-07-11 05:02] LABS: BACTERIA,URINE FEW /HPF (0-FEW); RBC,URINE OCC /HPF (0-2); SQUAMOUS EPITHELIAL CELL,UR MOD /LPF
--- NOTE | 2018-07-11 05:53 | RAD ---
Pelvic ultrasound to include transabdominal and transvaginal imaging 07/03/2018 CLINICAL HISTORY: Pelvic pain for 2 days. TECHNIQUE: Using the distended urinary bladder as a sonographic window, a real-time ultrasound examination of the pelvis was performed. Additionally in an attempt to better evaluate the uterus and adnexa, a transvaginal ultrasound study was performed. Multiple images were obtained. FINDINGS: The uterus is within normal limits in size and echogenicity. It measures 7.9 x 6.4 x 5.0 cm in longitudinal, transverse, and AP dimensions. The endometrial echo complex measures 6 mm in thickness which is within normal limits. Both ovaries are within normal limits in size and echogenicity. The right ovary measures 2.3 x 2.1 x 1.5 cm in size. The left ovary measures 2.4 x 1.5 x 1.7 cm in size. No adnexal mass is seen. No free fluid is noted. IMPRESSION: Negative study. Electronically signed by: Tim Jenkins MD (07/11/2018 5:49 AM) [facility]
[2018-07-11 06:00] VITALS: BP 125/70
[2018-07-11] MEDS ORDERED: ONDA4TAB12 PO (06:09)
[2018-07-11] MEDS ORDERED: NITR100C62 PO (06:12)
[2018-07-11] MEDS ORDERED: NITROFURANTOIN MONOHYD/M-CRYST 100 MG CAPSULE. PO ONE (06:30)
== END 2018-07-11 06:29 | disposition home or self-care (01) ==
LOC: ER 04:01
DX: N30.00 Acute cystitis without hematuria (principal); J45.909 Unspecified asthma, uncomplicated; Z87.440 Personal history of urinary (tract) infections; Z90.49 Acquired absence of other specified parts of digestive tract; Z88.1 Allergy status to other antibiotic agents; Z88.2 Allergy status to sulfonamides; Z88.5 Allergy status to narcotic agent; Z88.8 Allergy status to other drugs, medicaments and biological substances
CPT/HCPCS: 36415; 76830; 76856; 80053; 81001; 81025; 83690; 83735; 85025; 87086; 96374; 96375; 99284; J1885; J2405

== ENCOUNTER → 2018-09-06 | Outpatient (CLI) | payer OTHER ==
[~2018-09-06] MED LIST changes: +NITR100C62 PO; +ONDA4TAB12 PO
--- NOTE | 2018-09-06 15:59 | KCIC ---
EXAM: Pelvic sonogram. HISTORY: Suprapubic pain. TECHNIQUE: Sonographic imaging of the pelvis was performed. COMPARISON: 07/11/2018. FINDINGS: The liver and measures 9.3 x 4.7 x 5.3 cm. The individual stripe measures 10.4 mm in thickness. The ovaries are normal in size and demonstrate normal blood flow. There is trace free fluid within the cul-de-sac. IMPRESSION: 1. Trace pelvic free fluid, within physiologic limits for a premenopausal female. 2. Otherwise, unremarkable pelvic sonogram. Electronically signed by: Jaye Toure MD (09/06/2018 3:56 PM) [place] [id number]
== END | disposition home or self-care (01) ==
LOC: KCIC US 15:13
PROVIDERS: ATTEND Physician Assistant Surgical
DX: R10.30 Lower abdominal pain, unspecified (principal)
CPT/HCPCS: 76856

== ENCOUNTER → 2018-12-09 | Outpatient (CLI) | payer OTHER ==
--- NOTE | 2018-12-09 09:32 | KCIC ---
Complete abdomen ultrasound study Clinical indications: Epigastric pain. History of cholecystectomy. COMPARISON: September 13, 2018. FINDINGS: No focal enlargement of the pancreas is seen. No focal aneurysmal dilatation of the abdominal aorta is seen. The intrahepatic portion of the IVC is unremarkable. No hepatic mass is seen. The liver measures 15.9 cm in length. The gallbladder is surgically absent. The extrahepatic bile the measures 7 mm in caliber. The length of the right kidney is 10.5 cm. The length of the left kidney is 10.9 cm. No hydronephrosis or renal mass or perinephric fluid collection is seen on either side. The spleen measures 9.1 cm in length which is normal. No ascites is evident. IMPRESSION: The extra hepatic bile duct measures 7 mm in caliber which is mildly dilated. It measured 4 mm in caliber on the previous study. This could be due to the reservoir effect after cholecystectomy but correlation with liver function tests is recommended. Electronically signed by: Dylan Solano MD (12/09/2018 9:29 AM) [id number]
== END | disposition home or self-care (01) ==
LOC: KCIC US 07:43
PROVIDERS: ATTEND Internal Medicine Gastroenterology
DX: R10.13 Epigastric pain (principal); K31.89 Other diseases of stomach and duodenum; Z90.49 Acquired absence of other specified parts of digestive tract
CPT/HCPCS: 76700

== ENCOUNTER → 2018-12-17 | Outpatient (CLI) | payer OTHER ==
--- NOTE | 2018-12-17 14:49 | KCIC ---
MRCP WO CONTRAST: 12/17/2018 9:30 AM INDICATION: 28 years old Female. Abdominal pain and spasms.. COMPARISON: None. TECHNIQUE: Multiplanar multisequence MR imaging of the abdomen was performed both before and after the intravenous administration of gadolinium. MRCP protocol was utilized. Maximum intensity projection images of the biliary tree are provided. FINDINGS: LUNG BASES: Unremarkable. ABDOMEN: Evaluation of the abdomen is limited by patient motion artifact. LIVER: Normal morphology. No significant difference of hepatic signal intensity between in and out of phase images. There is no focal hepatic parenchymal abnormality. BILE DUCTS: CBD 6 mm. There is no intra or extrahepatic biliary ductal dilatation. There is no filling defect, stricture, obstructing lesion or biliary wall thickening identified. GALLBLADDER: Surgically absent. PANCREAS: There is suggestion of a 4 mm cyst in the tail the pancreas (series 15, image 4). Normal caliber pancreatic duct. SPLEEN: Within normal limits. There is an incompletely evaluated multiloculated cystic lesion along the inferior margin of the left hemidiaphragm measuring 2.4 x 3.8 x 2.3 cm. Differential considerations would include a posterior gastric diverticulum versus splenic lesion.This finding is poorly evaluated secondary to significant motion. ADRENAL GLANDS: Unremarkable. KIDNEYS: Within normal limits. No hydronephrosis. BOWEL: Normal caliber. PERITONEUM: No ascites or free air. No fluid collection. VASCULATURE: No abdominal aortic aneurysm. Major abdominal veins are patent. RETROPERITONEUM: Within normal limits. LYMPH NODES: Within normal limits. ABDOMINAL WALL: Unremarkable. BONES: No suspicious osseous abnormality. IMPRESSION: No evidence of biliary dilatation, stricture, filling defect, wall thickening or obstructing mass lesion. Common bile duct measures 6 mm. There is an incompletely evaluated multiloculated cystic lesion along the inferior margin of the left hemidiaphragm measuring 2.4 x 3.8 x 2.3 cm. Differential considerations would include a posterior gastric diverticulum versus splenic lesion. Further characterization with CT abdomen with IV and oral contrast may be of benefit. Electronically signed by: Elicia Stanley MD (12/17/2018 2:47 PM) [facility]
== END | disposition home or self-care (01) ==
LOC: KCIC MRI 09:17
PROVIDERS: ATTEND Internal Medicine Gastroenterology
DX: R10.13 Epigastric pain (principal)
CPT/HCPCS: 74181

== ENCOUNTER → 2019-01-29 | Outpatient (CLI) | payer OTHER ==
[~2019-01-29] MED LIST changes: +CONTRAST GIVEN. MC PRN; +IOHEXOL 240 MG/ML 50ML VIAL. PO ONE; +IOHEXOL 300 MG/ML 100ML VIAL. IV ONE
--- NOTE | 2019-01-29 16:53 | RAD ---
Examination: CT ABDOMEN W/CONTRAST History: Cystic lesion of the left hemidiaphragm Comparison/Correlation: MRCP exam 12/17/2018, 07/04/2016 CT abdomen and pelvis without contrast, 06/23/2015 CT abdomen and pelvis without contrast Findings: Axial images of the abdomen were obtained following IV and oral contrast. Sagittal and coronal reformatted images were provided. Visualized lung bases are clear. Liver, adrenal glands, and pancreas are normal. Kidneys are unremarkable. No enlarged upper abdominal lymph nodes. No upper abdominal ascites. Low-attenuation structures involving the splenic dome are present with rim calcifications and calcified septations. No acute bony process. Impression: Low-attenuation splenic dome cystic structures with calcific components is stable upon correlation with prior exams. This process is similar upon correlation with previous examination of 09/03/[address] exam and 06/23/2015 CT abdomen and pelvis without contrast. This corresponds with the finding in question on MRCP of exam performed on 12/17/2018. This may represent postinfectious or postinflammatory process. Alternatively it may represent calcification of splenic cysts. No suspicious process. PQRS Compliance Statement: One or more of the following individualized dose reduction techniques were utilized for this examination: 1. Automated exposure control 2. Adjustment of the mA and/or kV according to patient size 3. Use of iterative reconstruction technique Electronically signed by: Terrell López MD (01/29/2019 4:50 PM) [facility]
== END | disposition home or self-care (01) ==
LOC: CT 12:04
PROVIDERS: ATTEND Internal Medicine Gastroenterology
DX: J98.6 Disorders of diaphragm (principal)
CPT/HCPCS: 74160; Q9966; Q9967

== ENCOUNTER → 2020-04-29 | Outpatient (CLI) | payer OTHER ==
[~2020-04-29] MED LIST changes: -CONTRAST GIVEN. MC PRN; -IOHEXOL 240 MG/ML 50ML VIAL. PO ONE; -IOHEXOL 300 MG/ML 100ML VIAL. IV ONE
== END ==
LOC: SPEC 09:17
PROVIDERS: ATTEND Podiatrist
DX: O03.32 Renal failure following incomplete spontaneous abortion (principal)
CPT/HCPCS: 87071; 87075

== ENCOUNTER → 2020-05-06 | Outpatient (CLI) | payer OTHER ==
[2020-05-06 11:15] LABS: BASO # 0.1 x10^3/uL (0.0-0.2); BASO % 1 % (0-3); EOS # 0.3 x10^3/uL (0.0-0.7); EOS % 5 % (0-3); HEMATOCRIT 37.7 % (36.0-47.0); HEMOGLOBIN 12.8 g/dL (12.0-15.5); LYMPH % 33 % (24-48); MEAN CORPUSCULAR HEMOGLOBIN 29 pg (25-35); MEAN CORPUSCULAR HGB CONC 34 g/dL (31-37); MEAN CORPUSCULAR VOLUME 85 fL (79-100); MONO # 0.4 x10^3/uL (0.0-1.1); MONO % 7 % (0-9); NEUT # 3.3 x10^3/uL (1.8-7.7); NEUT % 54 % (31-73); PLATELET COUNT 256 x10^3/uL (140-400); RED BLOOD COUNT 4.41 x10^6/uL (3.50-5.40); RED CELL DISTRIBUTION WIDTH 13.5 % (11.5-14.5); WHITE BLOOD COUNT 6.1 x10^3/uL (4.0-11.0)
[2020-05-06 11:41] LABS: ALBUMIN 3.7 g/dL (3.4-5.0); ALBUMIN/GLOBULIN RATIO 0.9 (1.0-1.7); CALCIUM 8.8 mg/dL (8.5-10.1); CREATININE 0.8 mg/dL (0.6-1.0); GFR 83.7; POTASSIUM 3.9 mmol/L (3.5-5.1); TOTAL BILIRUBIN 0.3 mg/dL (0.2-1.0); TOTAL PROTEIN 7.6 g/dL (6.4-8.2)
[2020-05-07 01:08] LABS: HEMOGLOBIN A1C 5.5 % (4.8-5.6)
== END ==
LOC: LAB 10:39
PROVIDERS: ATTEND Podiatrist
DX: M20.10 Hallux valgus (acquired), unspecified foot (principal); L60.9 Nail disorder, unspecified
CPT/HCPCS: 36415; 80053; 83036; 85025

== ENCOUNTER → 2020-11-03 | Outpatient (CLI) | payer OTHER ==
--- NOTE | 2020-11-03 15:28 | RAD ---
EXAMINATION: US PELVIS COMPLETE INDICATION: 30 years, Female, irregular masses, menorrhagia and right pelvic pain. COMPARISON: MRI abdomen dated 12/17/2018. Ultrasound pelvis dated 07/11/2018 TECHNIQUE: Transabdominal ultrasound of the pelvis was performed with grayscale, spectral, and color doppler imaging. FINDINGS: UTERUS: Position: Anteverted Measures: 9 x 6 x 4.6 cm. Uterine/Endometrial Morphology: Unremarkable. Endometrial Thickness: 1.7 cm. RIGHT OVARY/ADNEXA: Measures: 2.2 x 2 x 1.7 cm. Right Ovarian Morphology: Unremarkable. Right Ovarian Color And Spectral Doppler Flow: Normal. LEFT OVARY/ADNEXA: Measures: 3.7 x 2 x 2.2 cm. Left Ovarian Morphology: Unremarkable. Left Ovarian Color And Spectral Doppler Flow: Normal. OTHER: Fluid/Cul-De-Sac: No free fluid IMPRESSION: 1. Endometrial stripe thickness is within upper limits of normal measures up to 1.7 cm, finding can b e seen in secretory phase of the menstrual cycle. 2. Otherwise, no acute sonographic findings in the pelvis. Electronically signed by: Yesica Kent MD (11/03/2020 3:25 PM) [id number]
== END ==
LOC: US 09:59
PROVIDERS: ATTEND Obstetrics & Gynecology
DX: N92.0 Excessive and frequent menstruation with regular cycle (principal); N92.6 Irregular menstruation, unspecified; R10.2 Pelvic and perineal pain
CPT/HCPCS: 76856

== ENCOUNTER → 2020-12-31 | Outpatient (CLI) | payer OTHER ==
--- NOTE | 2020-12-31 11:27 | KCIC ---
XR CHEST 2V CLINICAL INDICATIONS: Reason: Chest pain and cough. Hx. COVID / Spl. Instructions: Pt out of COVID qu arantine 12/10/20. / History: COMPARISON: March 16, 2018. Findings: No acute lung infiltrate or pleural effusion or pulmonary edema or lung mass or pneumothora x is seen. The heart size, pulmonary vasculature, mediastinum and both meaghan are unremarkable. The os seous structures appear intact. IMPRESSION: No acute radiographic abnormality is seen. Electronically signed by: Dylan Solano MD (12/31/2020 11:25 AM) [id number]
== END ==
LOC: KCIC 09:24
PROVIDERS: ATTEND Family Medicine
DX: U07.1 COVID-19 (principal); R05 Cough; R07.9 Chest pain, unspecified
CPT/HCPCS: 71046

== ENCOUNTER → 2020-12-31 | Outpatient (CLI) | payer OTHER ==
[~2020-12-31] MED LIST changes: +IOHEXOL 350 MG/ML 100 ML VIAL. IV ONE
--- NOTE | 2020-12-31 17:58 | RAD ---
CTA CHEST INDICATION: ELEV. D. DIMER, SOA, HX COVID-19 Comparison: Chest radiograph 12/31/2020. TECHNIQUE: Following the uneventful administration of intravenous contrast, 100 cc Omnipaque 350, axi al CT sections were obtained through the lungs and upper abdomen. Multiplanar reconstructions and MIP images were obtained. RS compliance statement: One or more of the following individualized dose reduction techniques were utilized for this examinat ion: 1. Automated exposure control 2. Adjustment of the mA and/or kV according to patient size 3. Use of iterative reconstruction technique FINDINGS: Pulmonary arteries: No evidence of pulmonary thromboembolic disease. Lungs and Airways: Few scattered areas of groundglass opacity. No abnormality of the central airways. Pleura: The pleural spaces are normal. Heart and Mediastinum: The visualized thyroid is normal in size and attenuation. No axillary or supra clavicular lymphadenopathy. No mediastinal, hilar or retrocrural lymphadenopathy. The heart and peric ardium are within normal limits. The great vessels of the thorax are normal. Abdomen: Limited images through the upper abdomen show no abnormality of the visualized organs. Bones and Soft Tissues: The visualized bones and chest wall soft tissues are within normal limits. IMPRESSION: 1. No evidence of pulmonary thromboembolic disease. 2. Few scattered areas of groundglass opacity, consistent with patient's history of infection. Electronically signed by: Faraz Pichardo MD (12/31/2020 5:56 PM) [facility]
== END ==
LOC: CT 16:51
PROVIDERS: ATTEND Family Medicine
DX: R06.02 Shortness of breath (principal); R79.89 Other specified abnormal findings of blood chemistry; R00.0 Tachycardia, unspecified; Z86.16 Personal history of COVID-19
CPT/HCPCS: 71275; Q9967

== ENCOUNTER 2021-05-24 09:42 | Emergency (ER) | payer OTHER ==
[~2021-05-24] VITALS: Ht 167.6 cm; Wt 95.9 kg
[~2021-05-24 09:42] MED LIST changes: +CYCL10TA19 PO; -CYCL10TA2 PO; +DICY20TA PO; -DICY20TA3 PO; -IOHEXOL 350 MG/ML 100 ML VIAL. IV ONE
[2021-05-24 10:28] LABS: INFLUENZA A PATIENT NEGATIVE (NEGATIVE); INFLUENZA B PATIENT NEGATIVE (NEGATIVE)
--- NOTE | 2021-05-24 10:30 | RAD ---
EXAM: Chest, single view. HISTORY: Cough. COMPARISON: 12/31/2020 FINDINGS: A frontal view of the chest is obtained. There is no infiltrate, pleural effusion or pneumo thorax. The heart is normal in size. IMPRESSION: No acute pulmonary finding. Electronically signed by: Jaye Toure MD (05/24/2021 10:27 AM) [id number]
--- NOTE | 2021-05-24 10:46 | PHYS DOC ---
Past Medical History Past Medical History: Anxiety, Asthma, Kidney Infection, UTI, Other Additional Past Medical Histor: frequent UTIs Past Surgical History: Cholecystectomy Smoking Status: Never Smoker Alcohol Use: None Drug Use: None General Adult EDM: Chief Complaint: SHORTNESS OF BREATH HPI: HPI: Patient is a 30-year-old female who presented today with cough and increased difficulty taking a deep breath. Patient states that over the last 3 to 4 days she is taking care of her sick child at home, this morning she woke up and she had radically in her chest and she was coughing and she is concerned that she has COVID-19. Patient denies chest pain or fever, nausea or vomiting. Patient states that she had 1 COVID vaccine on May 12 but has not gotten her second. Review of Systems: Review of Systems: Constitutional: Denies fever or chills. [] Eyes: Denies change in visual acuity. [] HENT: Denies nasal congestion or sore throat. [] Respiratory: cough or shortness of breath. [] Cardiovascular: Denies chest pain or edema. [] GI: Denies abdominal pain, nausea, vomiting, bloody stools or diarrhea. [] : Denies dysuria. [] Musculoskeletal: Denies back pain or joint pain. [] Integument: Denies rash. [] Neurologic: Denies headache, focal weakness or sensory changes. [] Endocrine: Denies polyuria or polydipsia. [] Lymphatic: Denies swollen glands. [] Psychiatric: Denies depression or anxiety. [] Heart Score: C/O Chest Pain: N/A Risk Factors: Risk Factors: DM, Current or recent (<one month) smoker, HTN, HLP, family history of CAD, obesity. Risk Scores: Score 0 - 3: 2.5% MACE over next 6 weeks - Discharge Home Score 4 - 6: 20.3% MACE over next 6 weeks - Admit for Clinical Observation Score 7 - 10: 72.7% MACE over next 6 weeks - Early Invasive Strategies Allergies: Allergies: Allergies Coded Allergies Type Severity Reaction Last Updated Verified Sulfa (Sulfonamide Antibiotics) Allergy Intermediate Rash 03/16/18 Yes ciprofloxacin Allergy Intermediate Rash, JOINT PAIN 03/16/18 Yes codeine Allergy Mild abdominal pain 03/16/18 Yes bupropion Adverse Reaction Intermediate SUICIDDAL THOUGHTS 03/16/18 Yes hydrocodone Adverse Reaction Intermediate ABDOMINAL PAIN 03/16/18 Yes paroxetine Adverse Reaction Intermediate PSYCHOSIS 03/16/18 Yes cephalexin Adverse Reaction Mild NAUSEA, DIZZINESS 03/16/18 Yes Physical Exam: PE: Constitutional: Well developed, well nourished, no acute distress, non-toxic appearance. [] HENT: Normocephalic, atraumatic, bilateral external ears normal, oropharynx moist, no oral exudates, nose normal. [] Eyes: PERRLA, EOMI, conjunctiva normal, no discharge. [] Neck: Normal range of motion, no tenderness, supple, no stridor. [] Cardiovascular:Heart rate regular rhythm, no murmur [] Lungs & Thorax: Bilateral breath sounds clear to auscultation [] Abdomen: Bowel sounds normal, soft, no tenderness, no masses, no pulsatile masses. [] Skin: Warm, dry, no erythema, no rash. [] Back: No tenderness, no CVA tenderness. [] Extremities: No tenderness, no cyanosis, no clubbing, ROM intact, no edema. [] Neurologic: Alert and oriented X 3, normal motor function, normal sensory function, no focal deficits noted. [] Psychologic: Affect normal, judgement normal, mood normal. [] Current Patient Data: Labs: Laboratory Tests Test 05/24/21 10:00 Influenza Type A Antigen Negative (NEGATIVE) Influenza Type B Antigen Negative (NEGATIVE) SARS-CoV-2 Antigen (Rapid) Negative (NEGATIVE) Vital Signs: Vital Signs Date Time Temp Pulse Resp B/P (MAP) Pulse Ox O2 Delivery O2 Flow Rate FiO2 05/24/21 10:52 92 18 135/89 (104) 97 Room Air 05/24/21 09:49 98.7 104 24 148/90 (109) 99 Room Air 98.7 Vital Signs Date Time Temp Pulse Resp B/P (MAP) Pulse Ox O2 Delivery O2 Flow Rate FiO2 05/24/21 09:49 98.7 104 24 148/90 (109) 99 Room Air 98.7 EKG: EKG: [] Radiology/Procedures: Radiology/Procedures: [REASON: cough, chest pain PROCEDURE: CHEST AP ONLY EXAM: Chest, single view. HISTORY: Cough. COMPARISON: 12/31/2020 FINDINGS: A frontal view of the chest is obtained. There is no infiltrate, pleural effusion or pneumothorax. The heart is normal in size. IMPRESSION: No acute pulmonary finding. Electronically signed by: Jaye Toure MD (05/24/2021 10:27 AM) [id number] ] Course & Med Decision Making: Course & Med Decision Making Pertinent Labs and Imaging studies reviewed. (See chart for details) 1040 reassessment of patient shows a heart rate of 88, with an oxygenation level of 98%, patient shows no increased work of breathing and no shortness of air. Patient will be sent home with COVID-19 quarantine precautions we will continue to wait for the PCR to come back, patient informed to use over the Counter decongestants, cough expectorants, Tylenol and ibuprofen as needed for pain or fever, nasal spray such as Flonase to help with nasal passages inflammation and increase by mouth fluids. Patient is agreeable to the plan of care. Dragon Disclaimer: Dragon Disclaimer: This electronic medical record was generated, in whole or in part, using a voice recognition dictation system. Departure Departure Impression: Primary Impression: Suspected 2019 novel coronavirus infection Additional Impression: Viral syndrome Disposition: HOME / SELF CARE / HOMELESS Condition: STABLE Referrals: KAITLYN VALDES MD (PCP) Patient Instructions: Viral Syndrome Additional Instructions: Kmhi-ubf-akvyehv negative nasal decongestants and cough expectorants to help with symptoms. [id number] Flonase 2 sprays each side of your nose twice daily Cool-mist humidifier to help with cough and congestion as well Increase by mouth fluids Return to the emergency department if you have an increased work of breathing, unable to keep any by mouth fluids down, or you have a change in mental status, or you have bluing of your lips or face. Follow-up with your primary care physician in 7 to 10 days if your symptoms have gotten worse. You have been tested for or diagnosed with COVID-19. It is an infection caused by a new type of coronavirus. COVID-19 will cause cold-like or mild flu symptoms in most. It can cause more severe symptoms like problems breathing in some. There is no treatment for COVID-19. The body will clear the infection over time. Self-care will help to ease discomfort. Steps to Take: Self-Care Rest as needed. Healthy habits may help you feel better. Steps include: Choose healthy foods including fruits and vegetables. Drink water throughout the day. Get plenty of sleep each night. If you smoke, try to quit. It may ease breathing. Avoid alcohol. Keep Others Healthy The virus can spread to others. Droplets are released every time you sneeze or cough. The droplets can get into the mouth, nose, or eyes of people near you and lead to infection. To lower the chances of spreading COVID-19 to others: Stay at home until your doctor has said it is safe to leave. If you tested positive this will mean staying isolated until both of the following are true: At least 10 days have passed since the start of illness. You are free of fever for at least 72 hours without the use of medicine. During this time: - Avoid public areas, events, or transportation. Do not return to work or school until your doctor has said it is safe to do so. - Call ahead if you need to go to a medical center. Let them know you may have COVID-19. It will help them guide you where to go. They may also ask you to wear a facemask when you come to the office. - If you call for emergency medical services, let them know you may have COVID- 19. While at home: - Try to avoid close contact with others. Stay about 6 feet away. - If possible, spend most of your time in a separate room from others. - Use a face mask if you will be in close contact with others such as sharing a room or vehicle. - Have someone wipe down common surfaces in the home. Use household adult live in caregiver every day on areas like doorknobs, counters, or sinks. - Cough or sneeze into a tissue. Throw the tissue away right after use. If a tissue is not available, cough or sneeze into your elbow. - Wash your hands often. Wash them after sneezing or coughing. Use soap and water and wash for at least 20 seconds. Alcohol based hand bin cleaner can be used if soap and water is not available. - Do not prepare food for others. Avoid sharing personal items like forks, spoons, or toothbrushes. - Avoid close contact with pets while you are sick. There is no evidence of the virus passing to pets. This is a safety step until more is known about this virus. Isolation can be frustrating. Social interaction can help. Keep in touch with friends and family through phone and tech options. You can still interact with others in your home, just keep a safe distance of about 6 feet. Follow-up: Your doctors office will check in with you to see if there are any changes in your health. You may be asked to keep track of symptoms to share with them. They will also let you know when you are clear to be in public again. Problems to Look Out For: Contact your doctor if your recovery is not going as you expect. Get emergency care if you have problems such as: - Trouble breathing - Nonstop chest pain or pressure - Changes in awareness, confusion, or problems waking - Lips or face have bluish color - Worsening of symptoms If you think you have an emergency, call for emergency medical services right away. As taken from [facility] Albuterol Sulfate (PROAIR HFA INHALER) 8.5 Gm Hfa.aer.ad 2 PUFF IH PRN Q4-6HRS PRN for wheezing for 21 Days, #1 INHALER 0 Refills Prov: IWONA SALAZAR APRN 05/24/21 IWONA SALAZAR APRN May 24, 2021 10:46
[2021-05-24 10:52] VITALS: BP 135/89
[2021-05-24] MEDS ORDERED: ALBU2.5V8 IH (10:52)
--- NOTE | 2021-05-24 18:04 | NUR ---
IP: Attempted to contact pt concerning covid results. no answer, left a voicemail to return the call.
--- NOTE | 2021-05-25 09:48 | NUR ---
IP: Pt returned call. Informed her of negative covid test. Pt verbalized understanding.
== END 2021-05-24 10:53 | disposition home or self-care (01) ==
LOC: ER 09:42
DX: B34.9 Viral infection, unspecified (principal); Z20.822 Contact with and (suspected) exposure to COVID-19; J45.909 Unspecified asthma, uncomplicated; Z88.2 Allergy status to sulfonamides; Z88.1 Allergy status to other antibiotic agents; Z88.5 Allergy status to narcotic agent; Z88.8 Allergy status to other drugs, medicaments and biological substances
CPT/HCPCS: 71045; 87428; 99284; U0003; U0005